=== PATIENT | female | born 1945 | race African-American/Black ===

== ENCOUNTER 2020-01-09 08:30 | Emergency (ER) | payer BC, OTHER ==
[~2020-01-09] VITALS: Ht 160 cm; Wt 113.4 kg
[2020-01-09 10:52] LABS: Basophils # (auto) 0 10 ^3/uL (0-0.2); Eosinophils # (auto) 0 10 ^3/uL (0-0.8); Eosinophils % (auto) 0.1 % (0.0-7.0); Hemoglobin 12.9 g/dL (12.2-16.2); Mean Corpuscular Hgb Conc. 32.6 g/dL (32.0-36.0); Monocytes # (auto) 0.5 10 ^3/uL (0-1.3); Neutrophils # (auto) 4.7 10 ^3/uL (1.6-8.6); White Blood Cell 6.7 10^3/uL (4.4-10.8)
[2020-01-09 10:55] VITALS: BP 140/82
[2020-01-09 10:55] LABS: Basophils % (auto) 0.4 % (0.0-2.0); Hematocrit 39.6 % (36.0-46.0); Lymphocytes # (auto) 1.4 10 ^3/uL (0.4-5.4); Lymphocytes % (auto) 21.4 % (10.0-50.0); Mean Corpuscular Hemoglobin 23.9 pg (28.0-32.0); Mean Corpuscular Volume 73.3 fL (80.0-100.0); Monocytes % (auto) 7.9 % (0.0-12.0); Neutrophils % (auto) 70.2 % (37.0-80.0); Nucleated Red Blood Cells % 0.2 %; Platelet Count (auto) 262 10^3/uL (140-450); Red Cell Distribution Width 15.8 % (11.8-14.3)
[2020-01-09 11:12] LABS: Alanine Aminotransferase 25 U/L (13-56); Albumin 2.9 g/dL (3.4-5.0); Anion Gap 11 (5-15); Aspartate Aminotransferase 26 U/L (15-37); BUN/Creatinine Ratio 14.9; Blood Urea Nitrogen 15 mg/dL (7-18); Calcium 7.8 mg/dL (8.5-10.1); Carbon Dioxide 23 mmol/L (21-32); Chloride 102 mmol/L (98-107); GFR African American 69 mL/min; GFR Non-African American 57 mL/min; Glucose 142 mg/dL (74-106); Sodium 136 mmol/L (136-145)
[2020-01-09 11:17] LABS: Alkaline Phosphatase 122 U/L (45-117); Bilirubin, Total 0.4 mg/dL (0.2-1.0)
[2020-01-09] MEDS ORDERED: POTASSIUM EFFERVESENT TAB 25 MEQ PO ONE (11:45)
[2020-01-13] MEDS ORDERED: RABE20TA19 PO (13:40)
[2020-01-13] MEDS ORDERED: DICL75TA3 PO (13:40)
[2020-01-13] MEDS ORDERED: AMLO-496 PO (13:40)
== END 2020-01-09 12:04 | disposition home or self-care (01) ==
LOC: ER 08:30 → EDBD 08:30 → ER 12:04
DX: J18.9 Pneumonia, unspecified organism (principal); E87.6 Hypokalemia; E44.0 Moderate protein-calorie malnutrition; I10 Essential (primary) hypertension; Z68.41 Body mass index [BMI] 40.0-44.9, adult
CPT/HCPCS: 36415; 71045; 80053; 83880; 84484; 85025; 93005

== ENCOUNTER 2020-01-13 05:08 | Inpatient (IN) | payer BC, MEDICAID ==
[~2020-01-13] VITALS: Ht 170.2 cm; Wt 118.4 kg
[2020-01-13] MEDS ORDERED: ZINC SULFATE 220mg CAP or TAB PO ONE (09:45)
[2020-01-13] MEDS ORDERED: DexAMETHasone SOD PHOS 10MG/1ML VIAL INJ IV ONE (09:45)
[2020-01-13] MEDS ORDERED: DOXYCYCLINE 100MG/250ML 250 ML IV ONE (09:45)
[2020-01-13] MEDS ORDERED: ASCORBIC ACID 500 MG TAB PO ONE (09:45)
[2020-01-13 09:59] LABS: Basophils # (auto) 0 10 ^3/uL (0-0.2); Eosinophils # (auto) 0 10 ^3/uL (0-0.8); Monocytes # (auto) 1.2 10 ^3/uL (0-1.3)
[2020-01-13 10:01] LABS: Hematocrit 39.6 % (36.0-46.0); Lymphocytes # (auto) 1.6 10 ^3/uL (0.4-5.4); Lymphocytes % (auto) 11.1 % (10.0-50.0); Mean Corpuscular Hemoglobin 23.9 pg (28.0-32.0); Mean Corpuscular Hgb Conc. 32.9 g/dL (32.0-36.0); Mean Corpuscular Volume 72.7 fL (80.0-100.0); Monocytes % (auto) 8.7 % (0.0-12.0); Neutrophils # (auto) 11.5 10 ^3/uL (1.6-8.6); Neutrophils % (auto) 80.2 % (37.0-80.0); Platelet Count (auto) 373 10^3/uL (140-450); Red Blood Cells 5.44 10^6/uL (4.0-5.20); Red Cell Distribution Width 15.1 % (11.8-14.3); White Blood Cell 14.4 10^3/uL (4.4-10.8)
[2020-01-13 10:14] LABS: Albumin 2.9 g/dL (3.4-5.0); Potassium 3.3 mmol/L (3.5-5.1)
[2020-01-13 10:19] LABS: BUN/Creatinine Ratio 19.2; Bilirubin, Total 0.5 mg/dL (0.2-1.0); Total Protein 8.1 g/dL (6.4-8.2)
[2020-01-13 11:40] LABS: INR 1.04 (0.9-1.15); Partial Thromboplastin Time 23.6 sec (23.0-31.2)
[2020-01-13] MEDS ORDERED: VANCOMYCIN PER PHARMACY 0 MG IV SCH (13:00)
[2020-01-13] MEDS: SODIUM CHLORIDE 0.9% 1,000 ML IV SCH (13:00)
[2020-01-13] MEDS ORDERED: REMDESIVIR PER PHARMACY 0 ML IV SCH (13:00)
[2020-01-13] MEDS ORDERED: DOCUSATE SOD 100 MG CAP PO PRN (13:00)
[2020-01-13] MEDS ORDERED: ONDANSETRON HCL 4 MG/2 ML VIAL IV PRN (13:00)
[2020-01-13] MEDS ORDERED: ALUM & MAG HYDROX-SIMETH LIQ(MAALOX) 30 ML PO PRN (13:00)
[2020-01-13] MEDS ORDERED: ACETAMINOPHEN 500 MG TAB PO PRN (13:00)
[2020-01-13] MEDS ORDERED: PNEUMOCOCCAL VACC POLYS 25 MCG/0.5 ML VIAL IM ONE (13:00)
[2020-01-13] MEDS ORDERED: INFLUENZA QUAD 2020-2021 0.5 ML SYRG IM ONE (13:00)
[2020-01-13] MEDS ORDERED: MORPHINE SULF INJ 2 MG/ML SYRINGE 1ML IV PRN (13:00)
[2020-01-13] MEDS ORDERED: ENOXAPARIN SOD 100 MG/1 ML SYRINGE SC ONE (13:00)
[2020-01-13] MEDS ORDERED: LORazepam 0.5 MG TAB PO PRN (13:00)
[2020-01-13] MEDS ORDERED: HYDROcodone-ACET 5/325MG TAB PO PRN (13:00)
[2020-01-13] MEDS ORDERED: PIPERACILLIN-TAZOB 3.375GM 100 ML IV ONE (13:00)
[2020-01-13] MEDS ORDERED: POTASSIUM CHL 20MEQ/100ML 100 ML IV ONE (13:15)
[2020-01-13 13:35] LABS: Magnesium 2.5 mg/dL (1.6-2.6)
[2020-01-13] MEDS ORDERED: ALBUAER3 IN (13:40)
[2020-01-13] MEDS ORDERED: FURO40TA4 PO (13:40)
[2020-01-13] MEDS ORDERED: DEXA6TAB PO (13:40)
[2020-01-13] MEDS ORDERED: DOXY100C2 PO (13:40)
[2020-01-13] MEDS ORDERED: AMLO10TA13 PO (13:40)
[2020-01-13] MEDS ORDERED: ACET-6 PO (13:40)
[2020-01-13] MEDS ORDERED: TIOT17SP IN (13:40)
[2020-01-13] MEDS ORDERED: LISI-646 PO (13:40)
[2020-01-13] MEDS ORDERED: INSU75IN2 SC (13:40)
[2020-01-13] MEDS ORDERED: HYDR25TA4 PO (13:40)
[2020-01-13] MEDS ORDERED: ATOR40TA52 PO (13:40)
[2020-01-13] MEDS ORDERED: CLON0.1T PO (13:40)
[2020-01-13] MEDS ORDERED: FLUT250M2 INH (13:40)
[2020-01-13] MEDS ORDERED: RABE20TA5 PO (13:40)
[2020-01-13] MEDS ORDERED: MET25T PO (13:40)
[2020-01-13] MEDS ORDERED: DICL-176 PO (13:40)
[2020-01-13] MEDS ORDERED: LEVO125T7 PO (13:40)
[2020-01-13] MEDS ORDERED: ALBU0.084 NEB (13:40)
[2020-01-13] MEDS ORDERED: BENZ100C97 PO (13:40)
[2020-01-13 13:43] LABS: CRP High Sensitivity 6.14 mg/dL (< 0.3)
[2020-01-13] MEDS ORDERED: DEXTROSE (50%) 50ML SYRG IV PRN (13:45)
[2020-01-13 14:08] LABS: Cholesterol 134 mg/dL (< 200); HDL Cholesterol 31 mg/dL (40-59); LDL Cholesterol 87 mg/dL (< 100); Triglycerides 114 mg/dL (< 150)
[2020-01-13 15:38] LABS: Lactic Acid w/Reflex 2.5 mmol/L (0.4-2.0)
[2020-01-13] MEDS ORDERED: REMDESIVIR 200 MG in NS 210ml LOADING DOSE ADULT IV ONE (16:00)
[2020-01-13 16:54] LABS: Alcohol, Urine < 3.0 mg/dL (0-10); Amphetamine Screen, Urine NEGATIVE (NEGATIVE); Barbiturate Scree,Urine NEGATIVE (NEGATIVE); Benzodiazephine Screen, Urine NEGATIVE (NEGATIVE); Cannabinoid Screen, Urine NEGATIVE (NEGATIVE); Cocaine Screen, Urine NEGATIVE (NEGATIVE); Opiate Scree,Urine NEGATIVE (NEGATIVE); Phencyclidine Screen, Urine NEGATIVE (NEGATIVE)
[2020-01-13] MEDS: ACCU-CHEK COMFORT CURVE STRIP VI SCH ×2 (17:00→22:02)
[2020-01-13] MEDS: InsuLIN REG 1unit/0.01ml Soln (100units/ml) SC SCH ×2 (17:00→22:15)
[2020-01-13] MEDS: VANCOMYCIN 1GM/250ML 250 ML IV SCH (17:11)
[2020-01-13 17:13] LABS: Urine Bacteria NONE SEEN /hpf (None Seen); Urine Blood Negative /uL (Negative); Urine Specific Gravity 1.019 (1.001-1.035); Urine WBC 1 /hpf (0 - 5)
[2020-01-13] MEDS ORDERED: PIPERACILLIN-TAZOB 3.375GM 100 ML IV SCH (18:00)
[2020-01-13] MEDS: FUROSEMIDE 20 MG/2 ML VIAL IV SCH (18:40)
--- NOTE | 2020-01-13 21:26 | NUR ---
Telemetry admit from ER Patient admitted to Telemetry unit after SBAR received and oriented to primary RN, unit, room, bed, and unit policies regarding patient care and visiting hours. Patient now on continuous telemetry monitoring, tele box #5 and telemetry reading on arrival to unit is sinus tachycardia at rate of 104. Patient placed on bedside oxygen at 3l/min NC, weighed by bedscale and encouraged to call if they need something. All questions and concerns addressed, patient verbalized understanding.
[2020-01-13] MEDS: ALBUTEROL SULF HFA 90MCG INH 200DOSE IN PRN (21:28)
[2020-01-13 21:30] VITALS: BP 144/77
[2020-01-13 21:32] LABS: Free T4 (Free Thyroxine) 1.21 ng/dL (0.89-1.76); T3 Total 0.3 ng/mL (0.60-1.81)
[2020-01-13 22:00] VITALS: BP 144/77
[2020-01-13] MEDS: FAMOTIDINE (10MG/ML) 2ML VL IV SCH (22:02)
[2020-01-13] MEDS: ENOXAPARIN SOD 100 MG/1 ML SYRINGE SC SCH (22:02)
[2020-01-13] MEDS: ATORVASTATIN 20 MG TAB PO SCH (22:02)
[2020-01-13] MEDS: PIPERACILLIN-TAZOB 3.375GM 100 ML IV SCH (23:46)
[2020-01-14] MEDS: VANCOMYCIN 1GM/250ML 250 ML IV SCH ×2 (04:33→17:58)
[2020-01-14 05:00] VITALS: BP 141/76
--- NOTE | 2020-01-14 05:26 | NUR ---
IV removal IV to right hand found to be infiltrated. IV DC'd with clean technique, catheter fully intact. Pressure dressing applied to site. Patient tolerated well.
--- NOTE | 2020-01-14 05:27 | NUR ---
IV insertion IV access obtained, via clean technique by inserting a 22 gauge catheter into a vein in the right forearm after 1 attempt. IV secured properly. No trauma to site. Patient tolerated well.
[2020-01-14] MEDS: InsuLIN REG 1unit/0.01ml Soln (100units/ml) SC SCH ×4 (06:14→21:57)
[2020-01-14] MEDS: ACCU-CHEK COMFORT CURVE STRIP VI SCH ×4 (06:16→21:58)
[2020-01-14] MEDS: SODIUM CHLORIDE 0.9% 1,000 ML IV SCH ×2 (06:20→21:46)
[2020-01-14] MEDS: LEVOTHYROXINE SODIUM 50 MCG TAB PO SCH (06:20)
[2020-01-14] MEDS: FUROSEMIDE 20 MG/2 ML VIAL IV SCH ×2 (06:21→17:59)
[2020-01-14] MEDS: PIPERACILLIN-TAZOB 3.375GM 100 ML IV SCH ×4 (06:21→23:57)
[2020-01-14 07:44] LABS: Basophils # (auto) 0 10 ^3/uL (0-0.2); Basophils % (auto) 0.1 % (0.0-2.0); Eosinophils # (auto) 0 10 ^3/uL (0-0.8); Mean Corpuscular Volume 72.9 fL (80.0-100.0); Nucleated Red Blood Cells % 0.1 %; White Blood Cell 14.6 10^3/uL (4.4-10.8)
[2020-01-14 07:47] LABS: Hematocrit 39.1 % (36.0-46.0); Hemoglobin 12.6 g/dL (12.2-16.2); Lymphocytes # (auto) 1.3 10 ^3/uL (0.4-5.4); Mean Corpuscular Hemoglobin 23.5 pg (28.0-32.0); Mean Corpuscular Hgb Conc. 32.2 g/dL (32.0-36.0); Monocytes # (auto) 1.3 10 ^3/uL (0-1.3); Monocytes % (auto) 9.1 % (0.0-12.0); Neutrophils % (auto) 81.8 % (37.0-80.0); Platelet Count (auto) 350 10^3/uL (140-450); Red Blood Cells 5.37 10^6/uL (4.0-5.20); Red Cell Distribution Width 15.5 % (11.8-14.3)
[2020-01-14 08:03] LABS: Albumin 2.4 g/dL (3.4-5.0); BUN/Creatinine Ratio 19.2; Bilirubin, Total 0.5 mg/dL (0.2-1.0); Calcium 8.2 mg/dL (8.5-10.1); Total Protein 7.2 g/dL (6.4-8.2)
[2020-01-14 09:00] VITALS: BP 141/73
[2020-01-14] MEDS: FAMOTIDINE (10MG/ML) 2ML VL IV SCH ×2 (09:23→21:44)
[2020-01-14] MEDS: CHOLECALCIFEROL (VITD3) 2,000 UNIT CAP PO SCH (09:23)
[2020-01-14] MEDS: DexAMETHasone SOD PHOS 10MG/1ML VIAL INJ IV SCH (09:23)
[2020-01-14] MEDS: POTASSIUM CHL 20 Meq TABLET PO SCH (09:24)
[2020-01-14] MEDS: ASCORBIC ACID 1,000 MG TAB PO SCH (09:24)
[2020-01-14] MEDS: ZINC SULFATE 220mg CAP or TAB PO SCH (09:24)
[2020-01-14] MEDS: ASPirin 81 mg TAB PO SCH (09:24)
[2020-01-14] MEDS: LISINOPRIL 5 MG TAB PO SCH (09:25)
[2020-01-14] MEDS: METOPROLOL SUCCINATE XL 50 MG TAB PO SCH (09:25)
[2020-01-14] MEDS: ENOXAPARIN SOD 100 MG/1 ML SYRINGE SC SCH ×2 (09:26→21:45)
[2020-01-14 12:58] VITALS: BP 131/82
[2020-01-14] MEDS: REMDESIVIR 100 MG in SODIUM CHL 0.9% 250 ML IV SCH (16:30)
[2020-01-14 17:00] VITALS: BP 132/89
--- NOTE | 2020-01-14 18:50 | NUR ---
REMDESIVIR V/S 1630-PRE V/S 137/64 HR 94 1645 V/S 144/84 HR 87 1740 POST 132/89 1840 1 HR POST 153/81 96 HR NO S/S OF DISTRESS NOTED.
--- NOTE | 2020-01-14 20:00 | NUR ---
Opening Shift Note Assumed care of patient, awake and alert. No S/S of distress/SOB or pain. Instructed on POC and to call for assist PRN, will continue to monitor for changes Q1hr and PRN. Bed in low position and call light within reach.
[2020-01-14] MEDS: ALBUTEROL SULF HFA 90MCG INH 200DOSE IN PRN (20:36)
[2020-01-14] MEDS: ATORVASTATIN 20 MG TAB PO SCH (21:44)
--- NOTE | 2020-01-14 21:44 | NUR ---
Patient educated on how to use Incentive spirometer patient verbalized understanding
[2020-01-14 23:46] VITALS: BP 140/71
[2020-01-15] MEDS: FUROSEMIDE 20 MG/2 ML VIAL IV SCH ×2 (05:43→17:34)
[2020-01-15] MEDS: PIPERACILLIN-TAZOB 3.375GM 100 ML IV SCH ×3 (05:43→17:34)
[2020-01-15] MEDS: LEVOTHYROXINE SODIUM 50 MCG TAB PO SCH (06:14)
[2020-01-15] MEDS: InsuLIN REG 1unit/0.01ml Soln (100units/ml) SC SCH ×4 (06:16→22:46)
[2020-01-15] MEDS: ACCU-CHEK COMFORT CURVE STRIP VI SCH ×4 (06:16→22:06)
--- NOTE | 2020-01-15 06:27 | NUR ---
LAB AT BEDSIDE OBTAINING BLOOD DRAW
[2020-01-15 06:31] VITALS: BP 141/83
--- NOTE | 2020-01-15 07:05 | NUR ---
REPORT GIVEN TO DAYSHIFT RN PATIENT DENIES SOB DISTRESS OR PAIN
[2020-01-15] MEDS: VANCOMYCIN 1GM/250ML 250 ML IV SCH ×2 (07:16→16:57)
--- NOTE | 2020-01-15 07:21 | NUR ---
NOTIFIED ROSHAN FROM PHARMACY OF DELAY IN GIVING VANCOMYCIN DUE TO AWAITING VANCOMYCIN TROUGH.
[2020-01-15 08:00] VITALS: BP 148/71
[2020-01-15 09:00] VITALS: BP 148/71
[2020-01-15] MEDS: DexAMETHasone SOD PHOS 10MG/1ML VIAL INJ IV SCH (09:53)
[2020-01-15] MEDS: ALBUTEROL SULF HFA 90MCG INH 200DOSE IN PRN (09:54)
[2020-01-15] MEDS: ZINC SULFATE 220mg CAP or TAB PO SCH (09:57)
[2020-01-15] MEDS: ASPirin 81 mg TAB PO SCH (09:57)
[2020-01-15] MEDS: FAMOTIDINE (10MG/ML) 2ML VL IV SCH ×2 (09:57→22:05)
[2020-01-15] MEDS: METOPROLOL SUCCINATE XL 50 MG TAB PO SCH (09:58)
[2020-01-15] MEDS: ASCORBIC ACID 1,000 MG TAB PO SCH (09:58)
[2020-01-15] MEDS: LISINOPRIL 5 MG TAB PO SCH (09:59)
[2020-01-15] MEDS: CHOLECALCIFEROL (VITD3) 2,000 UNIT CAP PO SCH (09:59)
[2020-01-15] MEDS: POTASSIUM CHL 20 Meq TABLET PO SCH (09:59)
[2020-01-15] MEDS: ENOXAPARIN SOD 100 MG/1 ML SYRINGE SC SCH ×2 (10:00→22:05)
[2020-01-15 13:00] VITALS: BP 153/97
[2020-01-15] MEDS: SODIUM CHLORIDE 0.9% 1,000 ML IV SCH (15:36)
[2020-01-15] MEDS: REMDESIVIR 100 MG in SODIUM CHL 0.9% 250 ML IV SCH (15:36)
[2020-01-15 16:42] VITALS: BP 143/85
--- NOTE | 2020-01-15 19:45 | NUR ---
Opening Shift Note Assumed care of patient, awake and alert. No S/S of distress/SOB or pain. Instructed on POC and to call for assist PRN, patient verbalized understanding, call light within reach, will continue to monitor for changes Q1hr and PRN.
[2020-01-15 20:19] VITALS: BP 146/90
[2020-01-15] MEDS: ATORVASTATIN 20 MG TAB PO SCH (22:05)
[2020-01-15] MEDS: INSULIN LANTUS (GLARGINE) 1 /0.01ml (100units/ml) SC SCH (22:45)
[2020-01-16] MEDS: PIPERACILLIN-TAZOB 3.375GM 100 ML IV SCH ×4 (00:21→17:18)
[2020-01-16] MEDS: VANCOMYCIN 1GM/250ML 250 ML IV SCH ×3 (03:18→22:28)
[2020-01-16] MEDS: FUROSEMIDE 20 MG/2 ML VIAL IV SCH ×2 (06:37→17:17)
[2020-01-16] MEDS: ACCU-CHEK COMFORT CURVE STRIP VI SCH ×4 (06:38→22:08)
[2020-01-16] MEDS: LEVOTHYROXINE SODIUM 50 MCG TAB PO SCH (06:38)
[2020-01-16] MEDS: InsuLIN REG 1unit/0.01ml Soln (100units/ml) SC SCH ×4 (06:39→22:26)
[2020-01-16] MEDS: DexAMETHasone SOD PHOS 10MG/1ML VIAL INJ IV SCH (10:14)
[2020-01-16] MEDS: SODIUM CHLORIDE 0.9% 1,000 ML IV SCH (10:14)
[2020-01-16] MEDS: ASPirin 81 mg TAB PO SCH (10:15)
[2020-01-16] MEDS: FAMOTIDINE (10MG/ML) 2ML VL IV SCH ×2 (10:15→22:07)
[2020-01-16] MEDS: ZINC SULFATE 220mg CAP or TAB PO SCH (10:16)
[2020-01-16] MEDS: POTASSIUM CHL 20 Meq TABLET PO SCH (10:17)
[2020-01-16] MEDS: CHOLECALCIFEROL (VITD3) 2,000 UNIT CAP PO SCH (10:21)
[2020-01-16] MEDS: ASCORBIC ACID 1,000 MG TAB PO SCH (10:21)
[2020-01-16] MEDS: LISINOPRIL 5 MG TAB PO SCH (10:30)
[2020-01-16] MEDS: ENOXAPARIN SOD 100 MG/1 ML SYRINGE SC SCH ×2 (10:30→22:07)
[2020-01-16] MEDS: METOPROLOL SUCCINATE XL 50 MG TAB PO SCH (12:05)
--- NOTE | 2020-01-16 14:30 | NUR ---
Nutrition Assessment Notes please see attached link for complete assessment [employer] needs ABW 98 [id number] kcals (17-20 kcal/kgABW), Est Protein needs: 98-107 gms/day (1.0-1.1 gm/kgABW). Will continue to monitor and reassess prn. Addendum: 01/16/20 at [address] Amended: Links added.
--- NOTE | 2020-01-16 14:38 | NUR ---
Assessment Patient is a 74 year old female, patient is unable to speak with SW, QUINTEN called daughter Mary to conduct initial assessment. Per Mary, patient is alert and oriented. Per Mary, patient cognitive abilities are intact. Per Mary, prior to being admitted to [facility], patient can do all ADL's and ambulate independently. Per Mary, patient is a diabetic. Per Mary, patient lives with daughters and grandchildren. Per Mary, Patient will return home post discharge. Per Mary, patient is retire and receives social security benefits. Per Mary, patient daughters and grandchildren are her support system. Per Mary, Patient has Advance Directive on file at her doctor office but not at [facility]. Discharge planning: Patient will return home post discharge, patient will follow up care with her PCP post discharge. Patient has all supplies to resume diabetic care post discharge. There are no other discharge needs to address at the moment.
[2020-01-16 16:20] LABS: Eosinophils # (auto) 0 10 ^3/uL (0-0.8); Hemoglobin 13.7 g/dL (12.2-16.2)
[2020-01-16 16:23] LABS: Basophils # (auto) 0 10 ^3/uL (0-0.2); Basophils % (auto) 0.2 % (0.0-2.0); Lymphocytes % (auto) 5.9 % (10.0-50.0); Mean Corpuscular Hemoglobin 23.8 pg (28.0-32.0); Mean Corpuscular Hgb Conc. 32.7 g/dL (32.0-36.0); Monocytes # (auto) 1.1 10 ^3/uL (0-1.3); Monocytes % (auto) 6.4 % (0.0-12.0); Neutrophils # (auto) 14.3 10 ^3/uL (1.6-8.6); Neutrophils % (auto) 87.5 % (37.0-80.0); Nucleated Red Blood Cells % 0.1 %; Platelet Count (auto) 459 10^3/uL (140-450); Red Blood Cells 5.75 10^6/uL (4.0-5.20); Red Cell Distribution Width 15.3 % (11.8-14.3); White Blood Cell 16.3 10^3/uL (4.4-10.8)
[2020-01-16] MEDS: REMDESIVIR 100 MG in SODIUM CHL 0.9% 250 ML IV SCH (16:45)
--- NOTE | 2020-01-16 19:30 | NUR ---
Opening Shift Note Assumed care of patient, awake and alert. No S/S of distress/SOB or pain. Instructed on POC and to call for assist PRN, will continue to monitor for changes Q1hr and PRN.
[2020-01-16 20:00] VITALS: BP 138/76
[2020-01-16 22:00] VITALS: BP 138/76
[2020-01-16] MEDS: ATORVASTATIN 20 MG TAB PO SCH (22:07)
[2020-01-16] MEDS: INSULIN LANTUS (GLARGINE) 1 /0.01ml (100units/ml) SC SCH (22:27)
[2020-01-17] VITALS (9 sets, daily range): BP systolic 111–138; BP diastolic 68–85
[2020-01-17] MEDS: PIPERACILLIN-TAZOB 3.375GM 100 ML IV SCH ×4 (00:25→17:06)
[2020-01-17] MEDS: SODIUM CHLORIDE 0.9% 1,000 ML IV SCH (00:25)
[2020-01-17] MEDS: LEVOTHYROXINE SODIUM 50 MCG TAB PO SCH (06:50)
[2020-01-17] MEDS: FUROSEMIDE 20 MG/2 ML VIAL IV SCH ×2 (06:50→17:05)
[2020-01-17] MEDS: ACCU-CHEK COMFORT CURVE STRIP VI SCH ×4 (06:51→22:31)
[2020-01-17] MEDS: InsuLIN REG 1unit/0.01ml Soln (100units/ml) SC SCH ×4 (06:52→22:33)
[2020-01-17] MEDS: VANCOMYCIN 1GM/250ML 250 ML IV SCH (08:55)
[2020-01-17] MEDS: ASPirin 81 mg TAB PO SCH (09:10)
[2020-01-17] MEDS: FAMOTIDINE (10MG/ML) 2ML VL IV SCH ×2 (09:10→22:31)
[2020-01-17] MEDS: DexAMETHasone SOD PHOS 10MG/1ML VIAL INJ IV SCH (09:10)
[2020-01-17] MEDS: POTASSIUM CHL 20 Meq TABLET PO SCH (09:11)
[2020-01-17] MEDS: ZINC SULFATE 220mg CAP or TAB PO SCH (09:11)
[2020-01-17] MEDS: ASCORBIC ACID 1,000 MG TAB PO SCH (09:12)
[2020-01-17] MEDS: METOPROLOL SUCCINATE XL 50 MG TAB PO SCH (09:12)
[2020-01-17] MEDS: LISINOPRIL 5 MG TAB PO SCH (09:13)
[2020-01-17] MEDS: CHOLECALCIFEROL (VITD3) 2,000 UNIT CAP PO SCH (09:13)
[2020-01-17] MEDS: ENOXAPARIN SOD 100 MG/1 ML SYRINGE SC SCH ×2 (09:14→22:31)
[2020-01-17] MEDS: INSULIN LANTUS (GLARGINE) 1 /0.01ml (100units/ml) SC SCH ×2 (11:35→22:33)
[2020-01-17] MEDS: ALBUTEROL SULF HFA 90MCG INH 200DOSE IN PRN ×2 (12:45→21:41)
[2020-01-17] MEDS: REMDESIVIR 100 MG in SODIUM CHL 0.9% 250 ML IV SCH (15:42)
[2020-01-17 16:12] LABS: Basophils # (auto) 0 10 ^3/uL (0-0.2); Eosinophils # (auto) 0 10 ^3/uL (0-0.8); Lymphocytes % (auto) 3.5 % (10.0-50.0); Monocytes # (auto) 1.1 10 ^3/uL (0-1.3); Monocytes % (auto) 5.7 % (0.0-12.0); Neutrophils # (auto) 16.7 10 ^3/uL (1.6-8.6)
[2020-01-17 16:14] LABS: Basophils % (auto) 0.3 % (0.0-2.0); Hematocrit 45.4 % (36.0-46.0); Hemoglobin 14.2 g/dL (12.2-16.2); Lymphocytes # (auto) 0.7 10 ^3/uL (0.4-5.4); Mean Corpuscular Hemoglobin 23.2 pg (28.0-32.0); Mean Corpuscular Hgb Conc. 31.2 g/dL (32.0-36.0); Mean Corpuscular Volume 74.4 fL (80.0-100.0); Neutrophils % (auto) 90.5 % (37.0-80.0); Platelet Count (auto) 528 10^3/uL (140-450); Red Blood Cells 6.11 10^6/uL (4.0-5.20); Red Cell Distribution Width 15.2 % (11.8-14.3); White Blood Cell 18.5 10^3/uL (4.4-10.8)
[2020-01-17 16:35] LABS: Albumin 2.3 g/dL (3.4-5.0); Calcium 8.4 mg/dL (8.5-10.1); Potassium 4.8 mmol/L (3.5-5.1)
[2020-01-17 16:39] LABS: BUN/Creatinine Ratio 25.4; Bilirubin, Total 0.8 mg/dL (0.2-1.0); Total Protein 7.5 g/dL (6.4-8.2)
--- NOTE | 2020-01-17 17:28 | NUR ---
DR MASSIEL LEON FOR CRITICAL VALUE OF BLOOD GLUCOSE 411. DR RANKIN INFORMED ME HE HAD CHANGED HER LANTUS ORDER TO BID AND TO MAINTAIN THE MODERATE SCALE THAT SHE IS PRESENTLY ON
[2020-01-17] MEDS: ATORVASTATIN 20 MG TAB PO SCH (22:31)
[2020-01-18] VITALS (7 sets, daily range): BP systolic 114–134; BP diastolic 55–87
[2020-01-18] MEDS: PIPERACILLIN-TAZOB 3.375GM 100 ML IV SCH ×5 (00:05→23:43)
[2020-01-18] MEDS: FUROSEMIDE 20 MG/2 ML VIAL IV SCH ×2 (06:06→17:40)
[2020-01-18] MEDS: LEVOTHYROXINE SODIUM 50 MCG TAB PO SCH (06:37)
[2020-01-18] MEDS: ACCU-CHEK COMFORT CURVE STRIP VI SCH ×4 (06:49→22:07)
[2020-01-18] MEDS: InsuLIN REG 1unit/0.01ml Soln (100units/ml) SC SCH ×4 (06:49→22:17)
[2020-01-18] MEDS: FAMOTIDINE (10MG/ML) 2ML VL IV SCH ×2 (09:28→22:06)
[2020-01-18] MEDS: DexAMETHasone SOD PHOS 10MG/1ML VIAL INJ IV SCH (09:28)
[2020-01-18] MEDS: ASPirin 81 mg TAB PO SCH (09:29)
[2020-01-18] MEDS: POTASSIUM CHL 20 Meq TABLET PO SCH (09:29)
[2020-01-18] MEDS: METOPROLOL SUCCINATE XL 50 MG TAB PO SCH (09:32)
[2020-01-18] MEDS: CHOLECALCIFEROL (VITD3) 2,000 UNIT CAP PO SCH (09:33)
[2020-01-18] MEDS: ASCORBIC ACID 1,000 MG TAB PO SCH (09:33)
[2020-01-18] MEDS: LISINOPRIL 5 MG TAB PO SCH (09:34)
[2020-01-18] MEDS: INSULIN LANTUS (GLARGINE) 1 /0.01ml (100units/ml) SC SCH ×2 (09:35→22:07)
[2020-01-18] MEDS: ENOXAPARIN SOD 100 MG/1 ML SYRINGE SC SCH ×2 (09:36→22:06)
[2020-01-18] MEDS: ZINC SULFATE 220mg CAP or TAB PO SCH (09:42)
[2020-01-18] MEDS: ATORVASTATIN 20 MG TAB PO SCH (22:06)
--- NOTE | 2020-01-19 00:20 | NUR ---
Dr. Bernard returned page concerning patient's high blood sugar. no new orders obtained. Instructions were to continue to follow the insulin dosing protocols that are currently established.
[2020-01-19 05:00] VITALS: BP 125/75
[2020-01-19] MEDS: PIPERACILLIN-TAZOB 3.375GM 100 ML IV SCH ×3 (05:38→18:01)
[2020-01-19] MEDS: FUROSEMIDE 20 MG/2 ML VIAL IV SCH ×2 (05:38→16:57)
[2020-01-19] MEDS: InsuLIN REG 1unit/0.01ml Soln (100units/ml) SC SCH ×4 (06:34→22:21)
[2020-01-19] MEDS: LEVOTHYROXINE SODIUM 50 MCG TAB PO SCH (06:34)
[2020-01-19] MEDS: ACCU-CHEK COMFORT CURVE STRIP VI SCH ×4 (06:34→22:21)
[2020-01-19 08:00] VITALS: BP 117/82
[2020-01-19] MEDS: DexAMETHasone SOD PHOS 10MG/1ML VIAL INJ IV SCH (09:27)
[2020-01-19] MEDS: ASPirin 81 mg TAB PO SCH (09:28)
[2020-01-19] MEDS: ZINC SULFATE 220mg CAP or TAB PO SCH (09:28)
[2020-01-19] MEDS: FAMOTIDINE (10MG/ML) 2ML VL IV SCH ×2 (09:28→21:57)
[2020-01-19] MEDS: POTASSIUM CHL 20 Meq TABLET PO SCH (09:29)
[2020-01-19] MEDS: METOPROLOL SUCCINATE XL 50 MG TAB PO SCH (09:31)
[2020-01-19] MEDS: ASCORBIC ACID 1,000 MG TAB PO SCH (09:32)
[2020-01-19] MEDS: CHOLECALCIFEROL (VITD3) 2,000 UNIT CAP PO SCH (09:33)
[2020-01-19] MEDS: LISINOPRIL 5 MG TAB PO SCH (09:34)
[2020-01-19] MEDS: INSULIN LANTUS (GLARGINE) 1 /0.01ml (100units/ml) SC SCH ×2 (09:39→22:21)
[2020-01-19] MEDS: ENOXAPARIN SOD 100 MG/1 ML SYRINGE SC SCH ×2 (09:39→21:57)
[2020-01-19 12:14] LABS: Potassium 4.3 mmol/L (3.5-5.1)
[2020-01-19 12:20] LABS: BUN/Creatinine Ratio 32.5; Calcium 8.9 mg/dL (8.5-10.1)
--- NOTE | 2020-01-19 14:00 | NUR ---
jackman catheter discontinued
--- NOTE | 2020-01-19 19:50 | NUR ---
Opening Shift Note Assumed care of patient, awake and alert, oriented x 4, follows direction. On oxygen at 5L via NC with even and unlabored respirations. No S/S of distress/SOB or pain. Patient is able to turn independently in bed. Bed in lowest locked position with side rails up x 2 and call light within reach, bed alarm on. Instructed on POC and to call for assist PRN, will continue to monitor for changes Q1hr and PRN.
[2020-01-19 21:41] VITALS: BP 123/65
[2020-01-19] MEDS: ATORVASTATIN 20 MG TAB PO SCH (21:57)
--- NOTE | 2020-01-19 23:00 | NUR ---
Paged Dr. Andrews RE: blood sugar 470 blood sugar 470, protocol initiated per orders. reassessed blood sugar 439. 5150 Received call back Informed Dr. Andrews of blood sugar, orders received to change insulin to aggressive scale with Accuchecks q4hrs. read back and verified orders, will carry out orders and continue care.
[2020-01-19] MEDS ORDERED: DEXTROSE (50%) 50ML SYRG IV PRN (23:45)
[2020-01-20] MEDS: ACCU-CHEK COMFORT CURVE STRIP VI SCH ×6 (00:07→20:52)
[2020-01-20] MEDS: PIPERACILLIN-TAZOB 3.375GM 100 ML IV SCH ×4 (00:12→17:28)
[2020-01-20] MEDS: InsuLIN REG 1unit/0.01ml Soln (100units/ml) SC SCH ×6 (00:12→21:14)
[2020-01-20 05:00] VITALS: BP 121/75
[2020-01-20] MEDS: FUROSEMIDE 20 MG/2 ML VIAL IV SCH ×2 (06:07→17:37)
[2020-01-20] MEDS: LEVOTHYROXINE SODIUM 50 MCG TAB PO SCH (06:08)
--- NOTE | 2020-01-20 07:05 | NUR ---
Closing Note patient resting in bed with oxygen on at 4L via NC with even and unlabored respirations, no s/s of distress or SOB. Bed in lowest locked position with side rails up x 2 and call light within reach. endorsed care to day shift RN.
[2020-01-20 08:00] VITALS: BP 120/71
[2020-01-20 08:54] LABS: Eosinophils # (auto) 0 10 ^3/uL (0-0.8); Hemoglobin 14.5 g/dL (12.2-16.2); Mean Corpuscular Hgb Conc. 32.2 g/dL (32.0-36.0); Nucleated Red Blood Cells % 0.2 %
[2020-01-20 08:57] LABS: Basophils # (auto) 0.2 10 ^3/uL (0-0.2); Basophils % (auto) 0.9 % (0.0-2.0); Lymphocytes # (auto) 2.8 10 ^3/uL (0.4-5.4); Lymphocytes % (auto) 13.7 % (10.0-50.0); Mean Corpuscular Hemoglobin 23.6 pg (28.0-32.0); Mean Corpuscular Volume 73.3 fL (80.0-100.0); Monocytes # (auto) 2.2 10 ^3/uL (0-1.3); Monocytes % (auto) 10.8 % (0.0-12.0); Neutrophils # (auto) 15.4 10 ^3/uL (1.6-8.6); Neutrophils % (auto) 74.6 % (37.0-80.0); Platelet Count (auto) 598 10^3/uL (140-450); Red Blood Cells 6.14 10^6/uL (4.0-5.20); Red Cell Distribution Width 15.1 % (11.8-14.3); White Blood Cell 20.6 10^3/uL (4.4-10.8)
[2020-01-20 09:00] VITALS: BP 120/71
[2020-01-20] MEDS: ASPirin 81 mg TAB PO SCH (09:23)
[2020-01-20] MEDS: DexAMETHasone SOD PHOS 10MG/1ML VIAL INJ IV SCH (09:23)
[2020-01-20] MEDS: FAMOTIDINE (10MG/ML) 2ML VL IV SCH ×2 (09:23→20:55)
[2020-01-20] MEDS: ZINC SULFATE 220mg CAP or TAB PO SCH (09:24)
[2020-01-20] MEDS: POTASSIUM CHL 20 Meq TABLET PO SCH (09:24)
[2020-01-20] MEDS: METOPROLOL SUCCINATE XL 50 MG TAB PO SCH (09:26)
[2020-01-20] MEDS: ASCORBIC ACID 1,000 MG TAB PO SCH (09:27)
[2020-01-20 09:28] LABS: Potassium 3.8 mmol/L (3.5-5.1)
[2020-01-20] MEDS: CHOLECALCIFEROL (VITD3) 2,000 UNIT CAP PO SCH (09:28)
[2020-01-20] MEDS: LISINOPRIL 5 MG TAB PO SCH (09:29)
[2020-01-20] MEDS: INSULIN LANTUS (GLARGINE) 1 /0.01ml (100units/ml) SC SCH ×2 (09:31→21:14)
[2020-01-20] MEDS: ENOXAPARIN SOD 100 MG/1 ML SYRINGE SC SCH ×2 (09:33→20:56)
[2020-01-20 09:35] LABS: BUN/Creatinine Ratio 33.1; CRP High Sensitivity 0.77 mg/dL (< 0.3); Calcium 8.7 mg/dL (8.5-10.1); Magnesium 2.7 mg/dL (1.6-2.6)
--- NOTE | 2020-01-20 10:52 | NUR ---
Consultation Patient has a order for discharge planning, patient stated that she lives with her and daughter. Patient stated that prior to being admitted to [facility], she could ambulate and do all ADL's independently. Patient stated that she wants to return home post discharge. Patient is receptive to home health physical therapy or SNF for rehabilitation. Patient would benefit from Physical therapy evaluation for discharge planning.
[2020-01-20] MEDS: ALBUTEROL SULF HFA 90MCG INH 200DOSE IN PRN ×2 (11:31→21:14)
[2020-01-20 13:00] VITALS: BP 133/55
--- NOTE | 2020-01-20 15:20 | NUR ---
DR RANKIN AT BEDSIDE
[2020-01-20 17:00] VITALS: BP 120/59
--- NOTE | 2020-01-20 19:35 | NUR ---
Opening Shift Note Assumed care of patient, awake and alert, oriented x 4, follows direction. On oxygen at 4L via NC with even and unlabored respirations. No S/S of distress/SOB or pain. Patient is able to turn independently in bed. Assisted patient off bedpan, cleaned patient and changed linens. educated patient on use of IS, attempted to have patient return demonstration, patient stated she is too tired right now, will attempt again at later time. Encourage patient to use IS while awake, patient verbalized understanding. Bed in lowest locked position with side rails up x 2 and call light within reach, bed alarm on. Instructed on POC and to call for assist PRN, will continue to monitor for changes Q1hr and PRN.
[2020-01-20] MEDS: ATORVASTATIN 20 MG TAB PO SCH (20:55)
--- NOTE | 2020-01-20 21:15 | NUR ---
Incentive Spirometer patient was able to properly return demonstration of IS, inspire volume 1000mL. Patient on 4L via NC, tolerated well. Encouraged patient to continue to use, patient verbalized understanding.
[2020-01-20 22:00] VITALS: BP 125/51
[2020-01-21] MEDS: ACCU-CHEK COMFORT CURVE STRIP VI SCH ×6 (00:56→21:20)
[2020-01-21] MEDS: PIPERACILLIN-TAZOB 3.375GM 100 ML IV SCH ×4 (01:02→18:27)
[2020-01-21] MEDS: InsuLIN REG 1unit/0.01ml Soln (100units/ml) SC SCH ×6 (01:06→21:36)
[2020-01-21 05:00] VITALS: BP 128/68
[2020-01-21] MEDS: FUROSEMIDE 20 MG/2 ML VIAL IV SCH ×2 (05:52→18:00)
[2020-01-21] MEDS: LEVOTHYROXINE SODIUM 50 MCG TAB PO SCH (06:41)
[2020-01-21 07:05] LABS: BUN/Creatinine Ratio 38.5; Calcium 8.7 mg/dL (8.5-10.1); Magnesium 2.4 mg/dL (1.6-2.6)
[2020-01-21 07:08] LABS: Basophils # (auto) 0 10 ^3/uL (0-0.2); Eosinophils # (auto) 0 10 ^3/uL (0-0.8); Hemoglobin 13.6 g/dL (12.2-16.2); Nucleated Red Blood Cells % 0.1 %
[2020-01-21 07:12] LABS: Basophils % (auto) 0.2 % (0.0-2.0); Hematocrit 42.6 % (36.0-46.0); Lymphocytes % (auto) 12.6 % (10.0-50.0); Mean Corpuscular Hemoglobin 23.3 pg (28.0-32.0); Monocytes # (auto) 2.4 10 ^3/uL (0-1.3); Monocytes % (auto) 10.1 % (0.0-12.0); Neutrophils # (auto) 18.4 10 ^3/uL (1.6-8.6); Neutrophils % (auto) 77.1 % (37.0-80.0); Platelet Count (auto) 511 10^3/uL (140-450); Red Blood Cells 5.84 10^6/uL (4.0-5.20); Red Cell Distribution Width 15.2 % (11.8-14.3); White Blood Cell 23.8 10^3/uL (4.4-10.8)
[2020-01-21] MEDS: ALBUTEROL SULF HFA 90MCG INH 200DOSE IN PRN ×2 (07:27→21:55)
--- NOTE | 2020-01-21 07:27 | NUR ---
Respiratory note: RECEIVED PT ON 4L NC. NO RESPIRATORY DISTRESS NOTED. WILL CONT. TO MONITOR.
[2020-01-21] MEDS: DexAMETHasone SOD PHOS 10MG/1ML VIAL INJ IV SCH (11:54)
[2020-01-21] MEDS: FAMOTIDINE (10MG/ML) 2ML VL IV SCH ×2 (11:54→21:37)
[2020-01-21] MEDS: ZINC SULFATE 220mg CAP or TAB PO SCH (11:55)
[2020-01-21] MEDS: POTASSIUM CHL 20 Meq TABLET PO SCH (11:55)
[2020-01-21] MEDS: ASPirin 81 mg TAB PO SCH (11:55)
[2020-01-21] MEDS: METOPROLOL SUCCINATE XL 50 MG TAB PO SCH (11:56)
[2020-01-21] MEDS: ASCORBIC ACID 1,000 MG TAB PO SCH (11:57)
[2020-01-21] MEDS: CHOLECALCIFEROL (VITD3) 2,000 UNIT CAP PO SCH (11:57)
[2020-01-21] MEDS: LISINOPRIL 5 MG TAB PO SCH (11:58)
[2020-01-21] MEDS: ENOXAPARIN SOD 100 MG/1 ML SYRINGE SC SCH ×2 (11:59→21:37)
[2020-01-21] MEDS: INSULIN LANTUS (GLARGINE) 1 /0.01ml (100units/ml) SC SCH ×2 (12:00→21:37)
[2020-01-21 13:00] VITALS: BP 112/58
--- NOTE | 2020-01-21 15:53 | NUR ---
Nutrition Followup Notes Pt wt is 118.3 kg Pt is positive for COVID in isolation. Pt is with a Regualr diet, appetite is fair aeb ave 58% x 3 meals per RN doc. Est Energy needs ABW 98 [id number] kcals (17-20 kcal/kgABW), Est Protein needs: 98-107 gms/day (1.0-1.1 gm/kgABW). Will continue to monitor and reassess prn. LABS: BUN 45 h, CREAT 1.17 H, GLUC 191 H, ALB 2.3 L GI: Pt had 1 BM on 01/20 per RN doc BS: 18 mod risk. Refer to wound assessment report for further details PES: 1) Altered nutrition related lab values r.t current/chronic medical condition aeb elev a1c hyperglycemia 2) Decreased nutrient needs r/t adiposity aeb pt`s high BMI of 44.5 kg Malnutrition related to morbid BMI> or equal to 40 Malnutrition related to morbid obesity Yes Comments Will continue to monitor PO status, skin status, pertinent labs and weight trends. Will f/u in 3-5 days 1) refer to CDE on DC 2) continue current plan fo care
--- NOTE | 2020-01-21 16:08 | NUR ---
QUINTEN spoke with Dawna from [facility] ([phone]), Per Dawna, patient is accepted for Home Health services, Home safety eval and home PT. QUINTEN spoke with Zaira from [employer] [facility] portable oxygen ETA between 5 - 8 pm today. QUINTEN will notify RN of delivery status.
--- NOTE | 2020-01-21 16:28 | NUR ---
[facility] phone number is [phone].
--- NOTE | 2020-01-21 19:40 | NUR ---
Opening Shift Note Assumed care of patient, awake and alert, oriented x 4, follows direction. On oxygen at 4L via NC with even and unlabored respirations. No S/S of distress/SOB or pain. Patient is able to turn independently in bed. Bed in lowest locked position with side rails up x 2 and call light within reach, bed alarm on. Instructed on POC and to call for assist PRN, will continue to monitor for changes Q1hr and PRN.
[2020-01-21] MEDS: ATORVASTATIN 20 MG TAB PO SCH (21:37)
--- NOTE | 2020-01-22 | NUR ---
Rounds patient sleeping on left side, with oxygen on at 8L via Oxymizer, even and unlabored respirations. continuous pulse ox on o2 sat 94%. will continue to monitor. Addendum: 01/22/20 at 0245 by Margie Araujo RN RN Amended: Links added.
[2020-01-22] MEDS: PIPERACILLIN-TAZOB 3.375GM 100 ML IV SCH ×2 (00:31→05:39)
[2020-01-22] MEDS: ACCU-CHEK COMFORT CURVE STRIP VI SCH ×5 (00:31→16:00)
[2020-01-22] MEDS: InsuLIN REG 1unit/0.01ml Soln (100units/ml) SC SCH ×5 (00:37→16:00)
[2020-01-22 05:30] VITALS: BP 111/72
[2020-01-22] MEDS: FUROSEMIDE 20 MG/2 ML VIAL IV SCH (05:40)
[2020-01-22 06:01] LABS: Eosinophils # (auto) 0 10 ^3/uL (0-0.8); Hemoglobin 12.6 g/dL (12.2-16.2); Monocytes % (auto) 9.7 % (0.0-12.0)
[2020-01-22 06:04] LABS: Basophils # (auto) 0.1 10 ^3/uL (0-0.2); Basophils % (auto) 0.4 % (0.0-2.0); Hematocrit 40.5 % (36.0-46.0); Lymphocytes # (auto) 3.2 10 ^3/uL (0.4-5.4); Lymphocytes % (auto) 12.5 % (10.0-50.0); Mean Corpuscular Hemoglobin 22.7 pg (28.0-32.0); Mean Corpuscular Hgb Conc. 31.2 g/dL (32.0-36.0); Mean Corpuscular Volume 72.9 fL (80.0-100.0); Monocytes # (auto) 2.4 10 ^3/uL (0-1.3); Neutrophils # (auto) 19.6 10 ^3/uL (1.6-8.6); Neutrophils % (auto) 77.4 % (37.0-80.0); Nucleated Red Blood Cells % 0.1 %; Platelet Count (auto) 449 10^3/uL (140-450); Red Blood Cells 5.55 10^6/uL (4.0-5.20); Red Cell Distribution Width 15.3 % (11.8-14.3); White Blood Cell 25.3 10^3/uL (4.4-10.8)
[2020-01-22 06:15] LABS: Potassium 4.7 mmol/L (3.5-5.1)
[2020-01-22 06:21] LABS: BUN/Creatinine Ratio 39.6; Calcium 8.5 mg/dL (8.5-10.1); Magnesium 2.8 mg/dL (1.6-2.6)
[2020-01-22] MEDS: LEVOTHYROXINE SODIUM 50 MCG TAB PO SCH (06:23)
--- NOTE | 2020-01-22 06:50 | NUR ---
Closing Note patient resting in bed with oxygen on at 2L via NC with even and unlabored respirations, o2 sat 95%, no s/s of distress or SOB. Bed in lowest locked position with side rails up x 2 and call light within reach.
--- NOTE | 2020-01-22 07:17 | NUR ---
Endorsed care to day shift ESTHER Nina
[2020-01-22] MEDS: ALBUTEROL SULF HFA 90MCG INH 200DOSE IN PRN (07:40)
[2020-01-22] MEDS: METOPROLOL SUCCINATE XL 50 MG TAB PO SCH (10:00)
[2020-01-22] MEDS: DexAMETHasone SOD PHOS 10MG/1ML VIAL INJ IV SCH (10:57)
[2020-01-22] MEDS: ZINC SULFATE 220mg CAP or TAB PO SCH (10:58)
[2020-01-22] MEDS: FAMOTIDINE (10MG/ML) 2ML VL IV SCH (10:58)
[2020-01-22] MEDS: POTASSIUM CHL 20 Meq TABLET PO SCH (10:58)
[2020-01-22] MEDS: ASPirin 81 mg TAB PO SCH (10:58)
[2020-01-22] MEDS: CHOLECALCIFEROL (VITD3) 2,000 UNIT CAP PO SCH (11:12)
[2020-01-22] MEDS: LISINOPRIL 5 MG TAB PO SCH (11:12)
[2020-01-22] MEDS: ASCORBIC ACID 1,000 MG TAB PO SCH (11:12)
[2020-01-22] MEDS: INSULIN LANTUS (GLARGINE) 1 /0.01ml (100units/ml) SC SCH (11:14)
[2020-01-22] MEDS: ENOXAPARIN SOD 100 MG/1 ML SYRINGE SC SCH (11:14)
[2020-01-22 11:57] VITALS: BP 114/73
--- NOTE | 2020-01-22 13:51 | NUR ---
QUINTEN spoke with Zaira from [facility], she stated that ETA oxygen should arrive at 2 pm today. QUINTEN notify Kelle SANTANA of status of oxygen delivery.
--- NOTE | 2020-01-22 18:04 | NUR ---
Discharge instructions given as ordered. Encourage to follow up with PMD as instructed. All questions and concerns addressed. Patient verbalized understanding. Medication reconciliation form completed and copy given to patient. IV removed with catheter intact, pressure dressing applied. Telemetry unit returned to ICU. Patient taken to vehicle via wheelchair with all personal belongings, accompanied by staff. No distress noted at time of departure.
== END 2020-01-22 18:04 | disposition home health service (06) | DRG 177 ==
LOC: EDBD 05:08 → ER 05:08 → TELE 05:09 → TELE-EAST 21:26
PROVIDERS: ADMIT Hospitalist; ATTEND Internal Medicine
PROC: XW033E5 Introduction of Remdesivir Anti-infective into Peripheral Vein, Percutaneous Approach, New Technology Group 5 (ICD-10-PCS; principal; 2020-01-13)
DX: U07.1 COVID-19 (principal); J96.01 Acute respiratory failure with hypoxia; J12.89 Other viral pneumonia; E43 Unspecified severe protein-calorie malnutrition; J98.11 Atelectasis; N17.9 Acute kidney failure, unspecified; Z68.41 Body mass index [BMI] 40.0-44.9, adult; I13.0 Hypertensive heart and chronic kidney disease with heart failure and stage 1 through stage 4 chronic kidney disease, or unspecified chronic kidney disease; J44.0 Chronic obstructive pulmonary disease with (acute) lower respiratory infection; E66.01 Morbid (severe) obesity due to excess calories; I50.9 Heart failure, unspecified; N18.9 Chronic kidney disease, unspecified; E03.9 Hypothyroidism, unspecified; E87.6 Hypokalemia; E11.22 Type 2 diabetes mellitus with diabetic chronic kidney disease; E11.65 Type 2 diabetes mellitus with hyperglycemia; E78.5 Hyperlipidemia, unspecified; Z79.4 Long term (current) use of insulin; Z79.51 Long term (current) use of inhaled steroids; Z79.899 Other long term (current) drug therapy; Z23 Encounter for immunization
CPT/HCPCS: 36415; 71045; 80048; 80053; 80061; 80202; 80307; 81001; 82565; 82728; 82962; 83036; 83605; 83615; 83735; 83880; 84439; 84443; 84480; 84484; 85025; 85379; 85610; 85730; 86141; 87086; 87426; 93005; 94640; 97116; 97530; 99291; G0378; J1100; J1815; J2543; J3480; J3490

== ENCOUNTER → 2022-08-14 | Outpatient (CLI) | payer OTHER, MEDICAID ==
[~2022-08-14] MED LIST: ACET-6 PO; ALBU0.084 NEB; ALBUAER3 IN; AMLO1TAB23 PO; ATOR40TA52 PO; BENZ100C97 PO; CLON0.1T PO; DICL75TA3 PO; FLUT250M2 INH; FURO40TA4 PO; HYDR25TA4 PO; INSU75IN2 SC; LEVO125T7 PO; LISI20TA56 PO; MET25T PO; RABE20TA19 PO; TIOT17SP IN
[2022-08-14 11:03] LABS: Basophils # (auto) 0.1 10 ^3/uL (0-0.2); Eosinophils # (auto) 0.7 10 ^3/uL (0-0.8); Hemoglobin 11.5 g/dL (12.2-16.2); Lymphocytes # (auto) 2.8 10 ^3/uL (0.4-5.4); Monocytes # (auto) 0.8 10 ^3/uL (0-1.3)
[2022-08-14 11:05] LABS: Basophils % (auto) 0.8 % (0.0-2.0); Eosinophils % (auto) 6.6 % (0.0-7.0); Hematocrit 35.4 % (36.0-46.0); Lymphocytes % (auto) 26.2 % (10.0-50.0); Mean Corpuscular Hemoglobin 26.1 pg (28.0-32.0); Mean Corpuscular Hgb Conc. 32.5 g/dL (32.0-36.0); Mean Corpuscular Volume 80.5 fL (80.0-100.0); Monocytes % (auto) 7.6 % (0.0-12.0); Neutrophils # (auto) 6.2 10 ^3/uL (1.6-8.6); Neutrophils % (auto) 58.8 % (37.0-80.0); Nucleated Red Blood Cells % 0.1 %; Red Cell Distribution Width 17.4 % (11.8-14.3); White Blood Cell 10.6 10^3/uL (4.4-10.8)
[2022-08-14 11:55] LABS: Potassium 3.8 mmol/L (3.5-5.1)
[2022-08-14 12:06] LABS: Folate (Folic Acid) 15.12 ng/mL (5.38-24)
[2022-08-14 12:08] LABS: BUN/Creatinine Ratio 21.9 (10.0-20.0); Bilirubin, Total 0.3 mg/dL (0.2-1.0); Calcium 8.3 mg/dL (8.5-10.1); Total Protein 7.4 g/dL (6.4-8.2)
[2022-08-14 12:18] LABS: Urine Bacteria NONE SEEN /hpf (None Seen); Urine Blood Negative /uL (Negative); Urine Hyaline Cast FEW /lpf (0 - 2); Urine Specific Gravity 1.021 (1.001-1.035); Urine WBC 262 /hpf (0 - 5)
== END | disposition home or self-care (01) ==
LOC: LAB 10:45
PROVIDERS: ATTEND Internal Medicine
DX: E78.41 Elevated Lipoprotein(a) (principal); R68.89 Other general symptoms and signs; R73.09 Other abnormal glucose; E61.2 Magnesium deficiency; R94.6 Abnormal results of thyroid function studies; E79.0 Hyperuricemia without signs of inflammatory arthritis and tophaceous disease; E55.9 Vitamin D deficiency, unspecified; D51.9 Vitamin B12 deficiency anemia, unspecified; R82.90 Unspecified abnormal findings in urine; R82.991 Hypocitraturia
CPT/HCPCS: 36415; 80053; 80061; 81001; 82306; 82607; 82746; 83036; 83735; 84443; 84550; 85025; 87086

== ENCOUNTER → 2022-08-17 | Outpatient (CLI) | payer OTHER | END | disposition home or self-care (01) | LOC: RT 10:36 | PROVIDERS: ATTEND Internal Medicine Pulmonary Disease | DX: J44.9 Chronic obstructive pulmonary disease, unspecified (principal) | CPT/HCPCS: 94060; 94727; 94729 ==

== ENCOUNTER → 2022-10-02 | Outpatient (CLI) | payer OTHER, MEDICAID ==
[~2022-10-02] MED LIST changes: +BUPIVACAINE HCL 0.25% P/F 10 ML VIAL ONE; +IOHEXOL 300 MG/ML 100ML BOTTLE IJ ONE; +LIDOCAINE 2%HCL (LOCAL ANESTH.) INJ 10ml MDV ONE; +methylPREDNISolone ACETATE 80 MG/ML VL ONE
== END | disposition home or self-care (01) ==
LOC: XYW 10:16
PROVIDERS: ATTEND Orthopaedic Surgery Adult Reconstructive Orthopaedic Surgery
DX: M16.12 Unilateral primary osteoarthritis, left hip (principal)
CPT/HCPCS: 20610; 73502; 76000; J1040; J2001; J3490; Q9967

== ENCOUNTER → 2022-11-20 | Outpatient (CLI) | payer OTHER ==
[~2022-11-20] MED LIST changes: -BUPIVACAINE HCL 0.25% P/F 10 ML VIAL ONE; -IOHEXOL 300 MG/ML 100ML BOTTLE IJ ONE; -LIDOCAINE 2%HCL (LOCAL ANESTH.) INJ 10ml MDV ONE; -methylPREDNISolone ACETATE 80 MG/ML VL ONE
[2022-11-20 13:08] LABS: Basophils # (auto) 0.1 10 ^3/uL (0-0.2); Hematocrit 38.9 % (36.0-46.0); Monocytes # (auto) 0.9 10 ^3/uL (0-1.3); Neutrophils # (auto) 6.2 10 ^3/uL (1.6-8.6); Nucleated Red Blood Cells % 0.1 %; Red Cell Distribution Width 17.1 % (11.8-14.3)
[2022-11-20 13:11] LABS: Basophils % (auto) 0.6 % (0.0-2.0); Eosinophils % (auto) 8.4 % (0.0-7.0); Hemoglobin 12.6 g/dL (12.2-16.2); Lymphocytes # (auto) 3.4 10 ^3/uL (0.4-5.4); Lymphocytes % (auto) 29.4 % (10.0-50.0); Mean Corpuscular Hgb Conc. 32.3 g/dL (32.0-36.0); Mean Corpuscular Volume 80.6 fL (80.0-100.0); Monocytes % (auto) 7.7 % (0.0-12.0); Neutrophils % (auto) 53.9 % (37.0-80.0); Red Blood Cells 4.83 10^6/uL (4.0-5.20); White Blood Cell 11.5 10^3/uL (4.4-10.8)
[2022-11-20 13:46] LABS: Alanine Aminotransferase 19 U/L (7-40); Albumin 4.4 g/dL (3.2-4.8); Alkaline Phosphatase 176 U/L (46-116); Anion Gap 7 (5-15); Aspartate Aminotransferase 11 U/L (13-40); BUN/Creatinine Ratio 21.7 (10.0-20.0); Blood Urea Nitrogen 23 mg/dL (9-23); Calcium 9.4 mg/dL (8.5-10.1); Carbon Dioxide 29 mmol/L (20-30); Chloride 102 mmol/L (98-107); Glucose 141 mg/dL (74-106); LDL Cholesterol 84 mg/dL (< 100); Potassium 3.8 mmol/L (3.5-5.1); Sodium 138 mmol/L (136-145); Triglycerides 107 mg/dL (< 150)
[2022-11-20 13:47] LABS: Bilirubin, Direct 0.2 mg/dL (<0.3); Bilirubin, Total 0.6 mg/dL (0.2-1.0); Cholesterol 140 mg/dL (< 200); HDL Cholesterol 33 mg/dL (40-59); Total Protein 8.1 g/dL (5.7-8.2)
[2022-11-20 14:42] LABS: Magnesium 1.8 mg/dL (1.6-2.6)
[2022-11-20 15:58] LABS: Urine Bacteria FEW /hpf (None Seen); Urine Blood Negative /uL (Negative); Urine Clarity HAZY (Clear); Urine Color Yellow (Yellow); Urine Protein, UAD Negative (Negative); Urine Specific Gravity 1.017 (1.001-1.035); Urine Urobilinogen Normal (Negative); Urine WBC 28 /hpf (0 - 5)
== END | disposition home or self-care (01) ==
LOC: LAB 12:34
PROVIDERS: ATTEND Specialist
DX: I10 Essential (primary) hypertension (principal); R94.5 Abnormal results of liver function studies; D64.9 Anemia, unspecified; E11.8 Type 2 diabetes mellitus with unspecified complications; E78.5 Hyperlipidemia, unspecified; E03.9 Hypothyroidism, unspecified; E83.40 Disorders of magnesium metabolism, unspecified; M83.9 Adult osteomalacia, unspecified
CPT/HCPCS: 36415; 80048; 80061; 80076; 81001; 83036; 83735; 84443; 85025

== ENCOUNTER → 2022-12-06 | Outpatient (CLI) | payer OTHER ==
[2022-12-06 12:19] LABS: Basophils # (auto) 0.1 10 ^3/uL (0-0.2); Eosinophils # (auto) 0.7 10 ^3/uL (0-0.8); Mean Corpuscular Hemoglobin 25.8 pg (28.0-32.0); Monocytes # (auto) 0.7 10 ^3/uL (0-1.3); Nucleated Red Blood Cells % 0.1 %; Red Cell Distribution Width 17.4 % (11.8-14.3)
[2022-12-06 12:20] LABS: Basophils % (auto) 0.6 % (0.0-2.0); Eosinophils % (auto) 6.6 % (0.0-7.0); Hematocrit 38.4 % (36.0-46.0); Hemoglobin 12.3 g/dL (12.2-16.2); Lymphocytes # (auto) 3.3 10 ^3/uL (0.4-5.4); Lymphocytes % (auto) 33.8 % (10.0-50.0); Mean Corpuscular Hgb Conc. 31.9 g/dL (32.0-36.0); Mean Corpuscular Volume 80.9 fL (80.0-100.0); Neutrophils # (auto) 5.1 10 ^3/uL (1.6-8.6); Red Blood Cells 4.75 10^6/uL (4.0-5.20); White Blood Cell 9.9 10^3/uL (4.4-10.8)
[2022-12-06 13:11] LABS: Urine Bacteria FEW /hpf (None Seen); Urine Blood Negative /uL (Negative); Urine Clarity HAZY (Clear); Urine Color Yellow (Yellow); Urine Hyaline Cast FEW /lpf (0 - 2); Urine Mucus FEW (None Seen); Urine Protein, UAD TRACE (Negative); Urine Specific Gravity 1.017 (1.001-1.035); Urine Urobilinogen Normal (Negative); Urine WBC 146 /hpf (0 - 5); Urine pH 5.5 (5.0-8.0)
[2022-12-06 13:30] LABS: Alanine Aminotransferase 16 U/L (7-40); Alkaline Phosphatase 167 U/L (46-116); Anion Gap 8 (5-15); Aspartate Aminotransferase 17 U/L (13-40); BUN/Creatinine Ratio 16.4 (10.0-20.0); Blood Urea Nitrogen 22 mg/dL (9-23); Calcium 9.5 mg/dL (8.5-10.1); Carbon Dioxide 28 mmol/L (20-30); Chloride 100 mmol/L (98-107); Glucose 140 mg/dL (74-106); LDL Cholesterol 79 mg/dL (< 100); Potassium 3.8 mmol/L (3.5-5.1); Sodium 136 mmol/L (136-145); Triglycerides 99 mg/dL (< 150)
[2022-12-06 13:31] LABS: Albumin 4.3 g/dL (3.2-4.8); Bilirubin, Total 0.9 mg/dL (0.2-1.0); Cholesterol 132 mg/dL (< 200); HDL Cholesterol 31 mg/dL (40-59); Total Protein 7.8 g/dL (5.7-8.2)
[2022-12-06 13:36] LABS: Folate (Folic Acid) > 24.00 ng/mL (>5.38)
[2022-12-06 14:11] LABS: Uric Acid 6.3 mg/dL (3.1-7.8)
[2022-12-06 14:12] LABS: Magnesium 1.8 mg/dL (1.6-2.6)
== END | disposition home or self-care (01) ==
LOC: LAB 11:53
PROVIDERS: ATTEND Internal Medicine
DX: E61.2 Magnesium deficiency (principal); R68.89 Other general symptoms and signs; E78.41 Elevated Lipoprotein(a); R94.6 Abnormal results of thyroid function studies; E79.0 Hyperuricemia without signs of inflammatory arthritis and tophaceous disease; E55.9 Vitamin D deficiency, unspecified; R82.79 Other abnormal findings on microbiological examination of urine; R82.991 Hypocitraturia; R82.90 Unspecified abnormal findings in urine; D51.9 Vitamin B12 deficiency anemia, unspecified
CPT/HCPCS: 36415; 80053; 80061; 81001; 82306; 82607; 82746; 83036; 83735; 84443; 84550; 85025; 87086

== ENCOUNTER → 2022-12-25 | Outpatient (CLI) | payer OTHER ==
[2022-12-25 14:11] LABS: Protein, Urine 9.9 mg/dL (0.0-11.9)
[2022-12-25 14:13] LABS: 24 Hr. Total Protein, Urine 138.6 mg/24 Hr (<149.1)
== END | disposition home or self-care (01) ==
LOC: LAB 12:44
PROVIDERS: ATTEND Nurse Practitioner Family
DX: R79.89 Other specified abnormal findings of blood chemistry (principal); D51.9 Vitamin B12 deficiency anemia, unspecified; E55.9 Vitamin D deficiency, unspecified; R79.9 Abnormal finding of blood chemistry, unspecified
CPT/HCPCS: 84156

== ENCOUNTER → 2023-01-12 | Outpatient (CLI) | payer OTHER ==
[2023-01-12 14:46] LABS: Urine Bacteria MOD /hpf (None Seen); Urine Blood Negative /uL (Negative); Urine Clarity HAZY (Clear); Urine Color Yellow (Yellow); Urine Mucus FEW (None Seen); Urine Protein, UAD Negative (Negative); Urine Specific Gravity 1.019 (1.001-1.035); Urine Urobilinogen Normal (Negative); Urine WBC 33 /hpf (0 - 5); Urine pH 5.5 (5.0-8.0)
== END | disposition home or self-care (01) ==
LOC: LAB 10:54
PROVIDERS: ATTEND Internal Medicine
DX: E11.22 Type 2 diabetes mellitus with diabetic chronic kidney disease (principal); N18.30 Chronic kidney disease, stage 3 unspecified; D63.1 Anemia in chronic kidney disease; E11.21 Type 2 diabetes mellitus with diabetic nephropathy; N39.0 Urinary tract infection, site not specified; R80.9 Proteinuria, unspecified; E21.3 Hyperparathyroidism, unspecified; M10.9 Gout, unspecified; E55.9 Vitamin D deficiency, unspecified
CPT/HCPCS: 81001; 87086

== ENCOUNTER → 2023-03-28 | Outpatient (CLI) | payer OTHER ==
[2023-03-28 13:00] LABS: Basophils # (auto) 0.1 10 ^3/uL (0-0.2); Eosinophils # (auto) 0.9 10 ^3/uL (0-0.8); Lymphocytes # (auto) 2.7 10 ^3/uL (0.4-5.4); Mean Corpuscular Volume 82.6 fL (80.0-100.0); Monocytes # (auto) 0.7 10 ^3/uL (0-1.3); Red Cell Distribution Width 16.2 % (11.8-14.3)
[2023-03-28 13:02] LABS: Basophils % (auto) 0.8 % (0.0-2.0); Eosinophils % (auto) 9.7 % (0.0-7.0); Hematocrit 37.4 % (36.0-46.0); Lymphocytes % (auto) 27.6 % (10.0-50.0); Mean Corpuscular Hemoglobin 26.5 pg (28.0-32.0); Mean Corpuscular Hgb Conc. 32.2 g/dL (32.0-36.0); Monocytes % (auto) 7.4 % (0.0-12.0); Neutrophils # (auto) 5.2 10 ^3/uL (1.6-8.6); Neutrophils % (auto) 54.5 % (37.0-80.0); Nucleated Red Blood Cells % 0.1 %; Red Blood Cells 4.53 10^6/uL (4.0-5.20); White Blood Cell 9.6 10^3/uL (4.4-10.8)
[2023-03-28 13:06] LABS: Calcium 9.3 mg/dL (8.5-10.1)
[2023-03-28 13:11] LABS: Albumin 4.2 g/dL (3.2-4.8)
[2023-03-28 13:13] LABS: Phosphorus 3.2 mg/dL (2.4-5.1)
[2023-03-28 13:26] LABS: Urine Bacteria NONE SEEN /hpf (None Seen); Urine Blood Negative /uL (Negative); Urine Clarity HAZY (Clear); Urine Color Yellow (Yellow); Urine Hyaline Cast FEW /lpf (0 - 2); Urine Protein, UAD Negative (Negative); Urine Specific Gravity 1.015 (1.001-1.035); Urine Urobilinogen Normal (Negative); Urine WBC 3 /hpf (0 - 5)
[2023-03-28 13:30] LABS: Uric Acid 5.5 mg/dL (3.1-7.8)
[2023-03-28 13:40] LABS: Creatinine, Urine 154.82 mg/dL (30.0-125.0); Urine Protein/Creatinine Ratio 0.07
== END | disposition home or self-care (01) ==
LOC: LAB 12:18
PROVIDERS: ATTEND Internal Medicine
DX: E11.22 Type 2 diabetes mellitus with diabetic chronic kidney disease (principal); E11.21 Type 2 diabetes mellitus with diabetic nephropathy; N18.30 Chronic kidney disease, stage 3 unspecified; D63.1 Anemia in chronic kidney disease; R80.9 Proteinuria, unspecified; E21.3 Hyperparathyroidism, unspecified; N39.0 Urinary tract infection, site not specified; M10.9 Gout, unspecified; E55.9 Vitamin D deficiency, unspecified
CPT/HCPCS: 36415; 80069; 81001; 82306; 82570; 83036; 83970; 84156; 84550; 85025

== ENCOUNTER → 2023-06-22 | Outpatient (CLI) | payer OTHER ==
[2023-06-22 09:13] LABS: Basophils # (auto) 0.1 10 ^3/uL (0-0.2); Basophils % (auto) 0.7 % (0.0-2.0); Eosinophils # (auto) 1.1 10 ^3/uL (0-0.8); Eosinophils % (auto) 10.3 % (0.0-7.0); Hematocrit 38.1 % (36.0-46.0); Hemoglobin 12.1 g/dL (12.2-16.2); Lymphocytes # (auto) 3.2 10 ^3/uL (0.4-5.4); Lymphocytes % (auto) 31.6 % (10.0-50.0); Mean Corpuscular Hemoglobin 25.7 pg (28.0-32.0); Mean Corpuscular Hgb Conc. 31.6 g/dL (32.0-36.0); Mean Corpuscular Volume 81.2 fL (80.0-100.0); Monocytes # (auto) 0.9 10 ^3/uL (0-1.3); Monocytes % (auto) 8.5 % (0.0-12.0); Neutrophils % (auto) 48.9 % (37.0-80.0); Red Blood Cells 4.69 10^6/uL (4.0-5.20); Red Cell Distribution Width 16.2 % (11.8-14.3); White Blood Cell 10.2 10^3/uL (4.4-10.8)
[2023-06-22 09:49] LABS: Triglycerides 108 mg/dL (< 150)
[2023-06-22 09:50] LABS: Alanine Aminotransferase 21 U/L (7-40); Albumin 4.1 g/dL (3.2-4.8); Alkaline Phosphatase 181 U/L (46-116); Anion Gap 5 (5-15); Aspartate Aminotransferase 16 U/L (13-40); BUN/Creatinine Ratio 25.2 (10.0-20.0); Bilirubin, Direct 0.2 mg/dL (<0.3); Bilirubin, Total 0.6 mg/dL (0.2-1.0); Blood Urea Nitrogen 28 mg/dL (9-23); Calcium 9.4 mg/dL (8.5-10.1); Carbon Dioxide 31 mmol/L (20-30); Chloride 106 mmol/L (98-107); Cholesterol 147 mg/dL (< 200); Glucose 136 mg/dL (74-106); HDL Cholesterol 34 mg/dL (40-59); LDL Cholesterol 82 mg/dL (< 100); Sodium 142 mmol/L (136-145); Total Protein 7.2 g/dL (5.7-8.2)
[2023-06-22 09:58] LABS: CRP High Sensitivity 2.76 mg/dL (<1.0)
[2023-06-22 10:13] LABS: % Iron Saturation 22.3 % (15-50)
[2023-06-22 10:17] LABS: Follicle Stimulating Hormone 41.36 IU/L (SEE BELOW); Leuteinizing Hormone 19.3 IU/L
== END | disposition home or self-care (01) ==
LOC: LAB 08:53
PROVIDERS: ATTEND Specialist
DX: I10 Essential (primary) hypertension (principal); E78.5 Hyperlipidemia, unspecified; E11.8 Type 2 diabetes mellitus with unspecified complications; E03.9 Hypothyroidism, unspecified; R94.5 Abnormal results of liver function studies; D64.9 Anemia, unspecified; M83.9 Adult osteomalacia, unspecified; E58 Dietary calcium deficiency; E61.1 Iron deficiency
CPT/HCPCS: 36415; 80048; 80061; 80076; 82306; 83001; 83002; 83036; 83540; 83550; 83970; 84443; 85025; 86141

== ENCOUNTER → 2023-07-25 | Outpatient (CLI) | payer OTHER ==
[~2023-07-25] MED LIST changes: +BUPIVACAINE HCL 0.25% P/F 10 ML VIAL ONE; +IOHEXOL 300 MG/ML 100ML BOTTLE IJ ONE; +LIDOCAINE 2%HCL (LOCAL ANESTH.) INJ 10ml MDV ONE; +methylPREDNISolone ACETATE 80 MG/ML VL ONE
== END | disposition home or self-care (01) ==
LOC: XYW 13:46
PROVIDERS: ATTEND Orthopaedic Surgery Adult Reconstructive Orthopaedic Surgery
DX: M16.0 Bilateral primary osteoarthritis of hip (principal); G89.29 Other chronic pain; J44.9 Chronic obstructive pulmonary disease, unspecified; G47.30 Sleep apnea, unspecified; Z79.899 Other long term (current) drug therapy
CPT/HCPCS: 20610; 73501; 73502; 77002; J1010; J2001; J3490; Q9967

== ENCOUNTER → 2023-10-03 | Outpatient (CLI) | payer OTHER ==
[~2023-10-03] MED LIST changes: -BUPIVACAINE HCL 0.25% P/F 10 ML VIAL ONE; -IOHEXOL 300 MG/ML 100ML BOTTLE IJ ONE; -LIDOCAINE 2%HCL (LOCAL ANESTH.) INJ 10ml MDV ONE; -methylPREDNISolone ACETATE 80 MG/ML VL ONE
[2023-10-03 11:34] LABS: Basophils # (auto) 0.1 10 ^3/uL (0-0.2); Basophils % (auto) 0.8 % (0.0-2.0); Eosinophils # (auto) 0.8 10 ^3/uL (0-0.8); Hemoglobin 12.7 g/dL (12.2-16.2); Lymphocytes # (auto) 2.3 10 ^3/uL (0.4-5.4); Mean Corpuscular Hgb Conc. 32.9 g/dL (32.0-36.0); Monocytes # (auto) 0.7 10 ^3/uL (0-1.3)
[2023-10-03 11:36] LABS: Eosinophils % (auto) 8.7 % (0.0-7.0); Hematocrit 38.6 % (36.0-46.0); Lymphocytes % (auto) 26.1 % (10.0-50.0); Mean Corpuscular Hemoglobin 26.6 pg (28.0-32.0); Mean Corpuscular Volume 80.7 fL (80.0-100.0); Monocytes % (auto) 7.7 % (0.0-12.0); Neutrophils % (auto) 56.7 % (37.0-80.0); Nucleated Red Blood Cells % 0.3 %; Platelet Count (auto) 267 10^3/uL (140-450); Red Blood Cells 4.78 10^6/uL (4.0-5.20); Red Cell Distribution Width 16.4 % (11.8-14.3); White Blood Cell 8.7 10^3/uL (4.4-10.8)
[2023-10-03 11:53] LABS: Urine Bacteria None Seen /hpf (None Seen); Urine Blood Negative /uL (Negative); Urine Clarity Clear (Clear); Urine Color Light-Yellow (Yellow); Urine Protein, UAD TRACE (Negative); Urine Specific Gravity 1.023 (1.001-1.035); Urine Urobilinogen Normal (Negative); Urine WBC 2 /hpf (0 - 5)
[2023-10-03 12:55] LABS: Creatinine, Urine 161.15 mg/dL (30.0-125.0)
[2023-10-03 12:57] LABS: Micro Albumin < 3.0 mg/L (<30.0)
[2023-10-03 12:58] LABS: Alanine Aminotransferase 18 U/L (7-40); Albumin 4.1 g/dL (3.2-4.8); Alkaline Phosphatase 176 U/L (46-116); Aspartate Aminotransferase 16 U/L (13-40); BUN/Creatinine Ratio 14.9 (10.0-20.0); Blood Urea Nitrogen 13 mg/dL (9-23); GFR African American 81 mL/min; GFR Non-African American 67 mL/min; Glucose 134 mg/dL (74-106); LDL Cholesterol 78 mg/dL (< 100); Triglycerides 102 mg/dL (< 150)
[2023-10-03 12:59] LABS: Bilirubin, Total 0.6 mg/dL (0.2-1.0); Cholesterol 135 mg/dL (< 200); HDL Cholesterol 34 mg/dL (40-59); Phosphorus 2.9 mg/dL (2.4-5.1); Total Protein 7.5 g/dL (5.7-8.2)
[2023-10-03 13:01] LABS: Folate (Folic Acid) 10.77 ng/mL (>5.38)
[2023-10-03 13:24] LABS: Chloride 108 mmol/L (98-107); Potassium 3.6 mmol/L (3.5-5.1); Sodium 140 mmol/L (136-145)
[2023-10-03 13:29] LABS: Anion Gap 8 (5-15); Calcium 9.3 mg/dL (8.7-10.4); Carbon Dioxide 24 mmol/L (20-30)
[2023-10-03 13:40] LABS: Uric Acid 5.8 mg/dL (3.1-7.8)
== END | disposition home or self-care (01) ==
LOC: LAB 11:07
PROVIDERS: ATTEND Internal Medicine
DX: E21.3 Hyperparathyroidism, unspecified (principal); R78.89 Finding of other specified substances, not normally found in blood; N18.30 Chronic kidney disease, stage 3 unspecified; E56.9 Vitamin deficiency, unspecified; M10.9 Gout, unspecified; R80.9 Proteinuria, unspecified; D63.1 Anemia in chronic kidney disease; E78.9 Disorder of lipoprotein metabolism, unspecified; R68.89 Other general symptoms and signs; R73.09 Other abnormal glucose
CPT/HCPCS: 36415; 80053; 80061; 80069; 81001; 82043; 82306; 82570; 82607; 82746; 83036; 83970; 84443; 84550; 85025; 87086

== ENCOUNTER → 2023-10-18 | Outpatient (CLI) | payer OTHER ==
[~2023-10-18] MED LIST changes: +BUPIVACAINE HCL 0.25% P/F 10 ML VIAL ONE; +IOHEXOL 300 MG/ML 100ML BOTTLE IJ ONE; +LIDOCAINE 2%HCL (LOCAL ANESTH.) INJ 10ml MDV ONE; +methylPREDNISolone ACETATE 80 MG/ML VL ONE
== END | disposition home or self-care (01) ==
LOC: XYW 10:09
PROVIDERS: ATTEND Orthopaedic Surgery Adult Reconstructive Orthopaedic Surgery
DX: M16.0 Bilateral primary osteoarthritis of hip (principal); G47.30 Sleep apnea, unspecified; J44.9 Chronic obstructive pulmonary disease, unspecified; Z87.891 Personal history of nicotine dependence
CPT/HCPCS: 20610; 73501; 77002; J1010; J2001; J3490; Q9967

== ENCOUNTER → 2023-11-21 | Outpatient (CLI) | payer OTHER ==
[~2023-11-21] MED LIST changes: -BUPIVACAINE HCL 0.25% P/F 10 ML VIAL ONE; -IOHEXOL 300 MG/ML 100ML BOTTLE IJ ONE; -LIDOCAINE 2%HCL (LOCAL ANESTH.) INJ 10ml MDV ONE; -methylPREDNISolone ACETATE 80 MG/ML VL ONE
[2023-11-21 12:10] LABS: Basophils # (auto) 0 10 ^3/uL (0-0.2); Basophils % (auto) 0.5 % (0.0-2.0); Eosinophils # (auto) 0.6 10 ^3/uL (0-0.8); Hemoglobin 12.5 g/dL (12.2-16.2)
[2023-11-21 12:12] LABS: Eosinophils % (auto) 7.7 % (0.0-7.0); Hematocrit 37.3 % (36.0-46.0); Lymphocytes # (auto) 2.8 10 ^3/uL (0.4-5.4); Lymphocytes % (auto) 34.2 % (10.0-50.0); Mean Corpuscular Hemoglobin 26.5 pg (28.0-32.0); Mean Corpuscular Hgb Conc. 33.4 g/dL (32.0-36.0); Mean Corpuscular Volume 79.4 fL (80.0-100.0); Monocytes # (auto) 0.8 10 ^3/uL (0-1.3); Monocytes % (auto) 9.8 % (0.0-12.0); Neutrophils # (auto) 3.9 10 ^3/uL (1.6-8.6); Neutrophils % (auto) 47.8 % (37.0-80.0); Platelet Count (auto) 246 10^3/uL (140-450); Red Cell Distribution Width 15.8 % (11.8-14.3); White Blood Cell 8.2 10^3/uL (4.4-10.8)
[2023-11-21 12:53] LABS: Alanine Aminotransferase 15 U/L (7-40); Alkaline Phosphatase 162 U/L (46-116); Anion Gap 7 (5-15); Aspartate Aminotransferase 12 U/L (13-40); BUN/Creatinine Ratio 16.3 (10.0-20.0); Bilirubin, Direct 0.1 mg/dL (<0.3); Blood Urea Nitrogen 16 mg/dL (9-23); Calcium 9.3 mg/dL (8.7-10.4); Carbon Dioxide 27 mmol/L (20-31); Chloride 108 mmol/L (98-107); Cholesterol 131 mg/dL (< 200); Glucose 149 mg/dL (74-106); HDL Cholesterol 36 mg/dL (40-59); LDL Cholesterol 78 mg/dL (< 100); Potassium 3.7 mmol/L (3.5-5.1); Sodium 142 mmol/L (136-145); Triglycerides 102 mg/dL (< 150)
[2023-11-21 12:54] LABS: Bilirubin, Total 0.4 mg/dL (0.2-1.0); Total Protein 7.2 g/dL (5.7-8.2)
== END | disposition home or self-care (01) ==
LOC: LAB 11:36
PROVIDERS: ATTEND Specialist
DX: I10 Essential (primary) hypertension (principal); E11.9 Type 2 diabetes mellitus without complications; D64.9 Anemia, unspecified; E78.5 Hyperlipidemia, unspecified
CPT/HCPCS: 36415; 80053; 80061; 82248; 84443; 85025

== ENCOUNTER → 2024-01-07 | Outpatient (CLI) | payer OTHER ==
[2024-01-07 11:05] LABS: Basophils # (auto) 0.1 10 ^3/uL (0-0.2); Eosinophils # (auto) 0.5 10 ^3/uL (0-0.8); Mean Corpuscular Hemoglobin 25.5 pg (28.0-32.0)
[2024-01-07 11:09] LABS: Basophils % (auto) 1.5 % (0.0-2.0); Eosinophils % (auto) 7.3 % (0.0-7.0); Hematocrit 41.2 % (36.0-46.0); Hemoglobin 13.4 g/dL (12.2-16.2); Lymphocytes # (auto) 2.8 10 ^3/uL (0.4-5.4); Lymphocytes % (auto) 43.1 % (10.0-50.0); Mean Corpuscular Hgb Conc. 32.6 g/dL (32.0-36.0); Mean Corpuscular Volume 78.4 fL (80.0-100.0); Monocytes # (auto) 0.5 10 ^3/uL (0-1.3); Monocytes % (auto) 8.3 % (0.0-12.0); Neutrophils # (auto) 2.6 10 ^3/uL (1.6-8.6); Neutrophils % (auto) 39.8 % (37.0-80.0); Nucleated Red Blood Cells % 0.2 %; Platelet Count (auto) 273 10^3/uL (140-450); Red Blood Cells 5.26 10^6/uL (4.0-5.20); Red Cell Distribution Width 16.3 % (11.8-14.3); White Blood Cell 6.6 10^3/uL (4.4-10.8)
[2024-01-07 11:46] LABS: Alanine Aminotransferase 29 U/L (7-40); Albumin 4.2 g/dL (3.2-4.8); Alkaline Phosphatase 183 U/L (46-116); Anion Gap 10 (5-15); Aspartate Aminotransferase 26 U/L (13-40); BUN/Creatinine Ratio 10.4 (10.0-20.0); Bilirubin, Direct 0.2 mg/dL (<0.3); Bilirubin, Total 0.7 mg/dL (0.2-1.0); Blood Urea Nitrogen 10 mg/dL (9-23); Calcium 9.4 mg/dL (8.7-10.4); Carbon Dioxide 23 mmol/L (20-31); Chloride 107 mmol/L (98-107); Cholesterol 140 mg/dL (< 200); Glucose 161 mg/dL (74-106); HDL Cholesterol 35 mg/dL (40-59); LDL Cholesterol 82 mg/dL (< 100); Potassium 3.9 mmol/L (3.5-5.1); Sodium 140 mmol/L (136-145); Total Protein 7.6 g/dL (5.7-8.2); Triglycerides 138 mg/dL (< 150)
== END | disposition home or self-care (01) ==
LOC: LAB 10:41
PROVIDERS: ATTEND Specialist
DX: E11.9 Type 2 diabetes mellitus without complications (principal); D64.9 Anemia, unspecified; I10 Essential (primary) hypertension; E78.5 Hyperlipidemia, unspecified; R68.89 Other general symptoms and signs; E03.9 Hypothyroidism, unspecified
CPT/HCPCS: 36415; 80053; 80061; 80076; 83036; 85025

== ENCOUNTER → 2024-02-27 | Outpatient (CLI) | payer OTHER ==
[~2024-02-27] MED LIST changes: +BUPIVACAINE HCL 0.25% P/F 10 ML VIAL ONE; +IOHEXOL 300 MG/ML 100ML BOTTLE IJ ONE; +LIDOCAINE 2%HCL (LOCAL ANESTH.) INJ 10ml MDV ONE; +methylPREDNISolone ACETATE 80 MG/ML VL ONE
--- NOTE | 2024-02-27 13:13 | DVH ---
PROCEDURE: RIGHT Hip Steroid Injection HISTORY: 78 Female pain DOCUMENTATION: Informed consent was obtained and a procedural time out was performed. Technique: Following adequate sterile preparation with chloroprep solution and local anesthesia using 1% lidocai ne, a 22-gauge needle was introduced into the RIGHT hip joint using intermittent fluoroscopic guidan ce. Intra-articular location of the needle tip was confirmed with a small amount of Omnipaque contras t. Subsequently 80 mg of Depo-Medrol and 6 cc of 1% bupivacaine were injected slowly into the joint space. No immediate complications were seen. FINDINGS: There is contrast opacification of the joint capsule. There is washout of contrast upon Jesus roid injection. Impression: Uneventful RIGHT hip injection with Depo-Medrol and bupivacaine as described above.
== END | disposition home or self-care (01) ==
LOC: XYW 10:56
PROVIDERS: ATTEND Orthopaedic Surgery Adult Reconstructive Orthopaedic Surgery
DX: M16.0 Bilateral primary osteoarthritis of hip (principal)
CPT/HCPCS: 72170; 76000; J1010; J2003; J3490; Q9967

== ENCOUNTER → 2024-04-04 | Outpatient (CLI) | payer OTHER ==
[~2024-04-04] MED LIST changes: -BUPIVACAINE HCL 0.25% P/F 10 ML VIAL ONE; -IOHEXOL 300 MG/ML 100ML BOTTLE IJ ONE; -LIDOCAINE 2%HCL (LOCAL ANESTH.) INJ 10ml MDV ONE; -methylPREDNISolone ACETATE 80 MG/ML VL ONE
[2024-04-04 13:21] LABS: Basophils # (auto) 0.1 10 ^3/uL (0-0.2); Eosinophils # (auto) 0.4 10 ^3/uL (0-0.8); Monocytes # (auto) 0.8 10 ^3/uL (0-1.3)
[2024-04-04 13:25] LABS: Basophils % (auto) 1.1 % (0.0-2.0); Eosinophils % (auto) 4.1 % (0.0-7.0); Hematocrit 41.2 % (36.0-46.0); Hemoglobin 13.1 g/dL (12.2-16.2); Lymphocytes # (auto) 2.8 10 ^3/uL (0.4-5.4); Lymphocytes % (auto) 28.3 % (10.0-50.0); Mean Corpuscular Hemoglobin 25.1 pg (28.0-32.0); Mean Corpuscular Hgb Conc. 31.7 g/dL (32.0-36.0); Monocytes % (auto) 7.7 % (0.0-12.0); Neutrophils # (auto) 5.9 10 ^3/uL (1.6-8.6); Neutrophils % (auto) 58.8 % (37.0-80.0); Platelet Count (auto) 276 10^3/uL (140-450); Red Blood Cells 5.21 10^6/uL (4.0-5.20); Red Cell Distribution Width 16.8 % (11.8-14.3)
[2024-04-04 13:35] LABS: Urine Bacteria FEW /hpf (None Seen); Urine Blood Negative /uL (Negative); Urine Clarity Clear (Clear); Urine Color Yellow (Yellow); Urine Mucus FEW (None Seen); Urine Protein, UAD TRACE (Negative); Urine Specific Gravity 1.025 (1.001-1.035); Urine Squamous Epithelial Cell FEW /hpf (<5); Urine Urobilinogen Normal (Negative); Urine WBC 3 /HPF (0-5)
[2024-04-04 13:48] LABS: Alanine Aminotransferase 17 U/L (7-40); Albumin 4.4 g/dL (3.2-4.8); Anion Gap 10 (5-15); Aspartate Aminotransferase 14 U/L (13-40); BUN/Creatinine Ratio 15.2 (10.0-20.0); Blood Urea Nitrogen 15 mg/dL (9-23); Calcium 9.6 mg/dL (8.7-10.4); Carbon Dioxide 27 mmol/L (20-31); Chloride 102 mmol/L (98-107); Cholesterol 140 mg/dL (< 200); LDL Cholesterol 83 mg/dL (< 100); Potassium 3.6 mmol/L (3.5-5.1); Sodium 139 mmol/L (136-145); Total Protein 7.6 g/dL (5.7-8.2); Triglycerides 105 mg/dL (< 150)
[2024-04-04 13:49] LABS: Alkaline Phosphatase 166 U/L (46-116); Bilirubin, Total 0.6 mg/dL (0.2-1.0); Glucose 159 mg/dL (74-106); HDL Cholesterol 36 mg/dL (40-59)
[2024-04-04 14:06] LABS: Uric Acid 7.3 mg/dL (3.1-7.8)
[2024-04-04 15:03] LABS: Folate (Folic Acid) 10.73 ng/mL (>5.38)
== END | disposition home or self-care (01) ==
LOC: LAB 12:23
PROVIDERS: ATTEND Internal Medicine
DX: E61.2 Magnesium deficiency (principal); E55.9 Vitamin D deficiency, unspecified; D51.9 Vitamin B12 deficiency anemia, unspecified; E78.49 Other hyperlipidemia; E79.0 Hyperuricemia without signs of inflammatory arthritis and tophaceous disease; R94.6 Abnormal results of thyroid function studies; R82.79 Other abnormal findings on microbiological examination of urine; R82.998 Other abnormal findings in urine; R73.09 Other abnormal glucose; R68.89 Other general symptoms and signs; R82.90 Unspecified abnormal findings in urine
CPT/HCPCS: 36415; 80053; 80061; 81001; 82607; 82746; 83036; 84443; 84550; 85025; 87086

== ENCOUNTER → 2024-06-06 | Outpatient (CLI) | payer OTHER ==
[~2024-06-06] MED LIST changes: +LIDOCAINE 2%HCL (LOCAL ANESTH.) INJ 10ml MDV IJ ONE
--- NOTE | 2024-06-06 13:23 | DVH ---
XY R HIP 1V XRAY HISTORY: B/L PRIMARY OA OF HIP COMPARISON: XY R HIP 1V XRAY on DOS: 10/18/23, XY L HIP 1V XRAY on DOS: 10/18/23, XY R HIP 1V XRAY on D OS: 07/25/23 PROCEDURE: The risks and benefits of the procedure including infection, hemorrhage and technical failure were di scussed with the patient, who agreed to proceed. The patient was positioned supine on the fluoroscopy table. Time out was performed. The left and righ t was localized using fluoroscopy, and the location on the skin for needle insertion was marked. The region was prepped and draped using routine sterile technique. Approximately 2 cc of lidocaine was in jected for local anesthesia. A 22 gauge spinal needle was inserted, and intra-articular location was confirmed by injection of less than 1 cc of iodinated contrast. 1 cc of methylprednisolone (80 mg/cc) and 4 cc of Bupivacaine (0.25%) and 5 cc of 2% Lidocaine was then injected without complication. Flu oroscopy time was 1.3 minutes. The patient was informed of the temporary precautions to take following the procedure as well as of t he potential signs and symptoms which may indicate the need to contact physician, and expressed unde rstanding of this discussion. IMPRESSION: Successful steroid and anesthetic injection of the right and left.
== END | disposition home or self-care (01) ==
LOC: XYW 11:01
PROVIDERS: ATTEND Orthopaedic Surgery Adult Reconstructive Orthopaedic Surgery
DX: M16.0 Bilateral primary osteoarthritis of hip (principal); J44.9 Chronic obstructive pulmonary disease, unspecified; G47.30 Sleep apnea, unspecified; Z79.899 Other long term (current) drug therapy; Z87.891 Personal history of nicotine dependence
CPT/HCPCS: 20610; 77002; J1010; J2003; J3490; Q9967; 73501

== ENCOUNTER 2024-06-27 13:21 | Emergency (ER) | payer OTHER ==
[~2024-06-27] VITALS: Ht 170.2 cm; Wt 134.6 kg
[~2024-06-27 13:21] MED LIST changes: -LIDOCAINE 2%HCL (LOCAL ANESTH.) INJ 10ml MDV IJ ONE
[2024-06-27 14:11] VITALS: BP 146/82; PULSE 96; RESP 20; TEMP 97.9; O2SAT 97
[2024-06-27] MEDS ORDERED: CLIN1CAP70 PO (14:17)
[2024-06-27] MEDS ORDERED: NYS5LQ MT (14:17)
--- NOTE | 2024-06-27 14:19 | ED.PDOC ---
Eye-HPI HPI Comments A 79 YEAR OLD FEMALE PRESENTS TO THE ED WITH COMPLAINT OF TONGUE IRRITATION AND BLISTER. PATIENT STATES SHE HAS BEEN EXPERIENCING TONGUE IRRITATION AND BLISTERS FOR THE PAST 2 MONTHS. PATIENT REPORTS SHE HAS BEEN TO AN URGENT CARE AND HER PRIMARY CARE PHYSICIAN AND WAS NOT PRESCRIBED ANYTHING. PATIENT DENIES FEVER, CHILLS, SHORTNESS OF BREATH, CHEST PAIN, ABDOMINAL PAIN, NAUSEA, VOMITING, HEADACHE, OR OTHER COMPLAINTS. NO OTHER SYMPTOMS OR MODIFYING FACTORS AT THIS TIME. PATIENT IS ALERT, ORIENTED X 4, AND HAS STEADY GAIT. Chief Complaint: Thrush Time Seen by MD: 13:42 Primary Care Provider: BRITTANI Reviewed Notes: Nurses Notes, Medications, Allergies Allergies: Coded Allergies: NO KNOWN ALLERGIES (Unverified , 01/13/20) Home Meds Active Scripts Nystatin (Mouth-Throat) (Mycostatin (Mouth-Throat)) 500,000 Units/5 Ml Ss, 5 ML MT QID for 10 Days, #200 ML Prov:LISETTE MONTERROSO 06/27/24 Clindamycin Hcl (Clindamycin Hcl) 300 Mg Cap, 300 MG PO QID, #32 CAP Prov:LISETTE MONTERROSO 06/27/24 Reported Medications Hydrochlorothiazide (Hydrochlorothiazide) 25 Mg Tab, 25 MG PO DAILY, MG 01/13/20 Clonidine Hydrochloride (Clonidine Hcl) 0.1 Mg Tab, 0 PO BID, MG TAKE 1 TAB PO QAM & 2 TABS PO HS 01/13/20 Rabeprazole Sodium (Aciphex) 20 Mg Tab, 1 TAB PO DAILY, #90 TAB 1 Refill 01/13/20 Albuterol Sulfate (VENTOLIN MDI) 90 Mcg Ih, 2 PUFF IN QIDP, INH 01/13/20 Amlodipine Besylate (Amlodipine Besylate) 10 Mg Tab, 1 TAB PO DAILY, #30 TAB 5 Refills 01/13/20 Fluticasone-Salmeterol (Advair Diskus 250/50) 1 Puff Ih, 1 PUFF INH BID, #3 INHALER 3 Refills 01/13/20 Furosemide (Furosemide) 40 Mg Tab, 40 MG PO DAILY 01/13/20 Atorvastatin Calcium (ATORVASTATIN CALCIUM) 40 Mg Tab, 1 TAB PO HS, #30 TAB 5 Refills 01/13/20 Lisinopril (Lisinopril) 20 Mg Tab, 20 MG PO DAILY for 30 Days, MG 01/13/20 Metoprolol Tartrate (Lopressor) 25 Mg Tb, 25 MG PO BID, TAB 0 Refills 01/13/20 Diclofenac Sodium (Diclofenac Sodium Dr) 75 Mg Tab, 1 TAB PO BID, #60 TAB 1 Refill 01/13/20 Albuterol Sulfate (Albuterol Sulfate) 0.083 % Neb, 1 VIAL NEB Q4-6HPRN, #50 VIAL 01/13/20 Insulin Lispro Protamine & Lis (Humalog Mix 75/25 Kwikpen) 75 Mg/25 Kwp Inj, 20 UNITS SC BID, INJ 01/13/20 Tiotropium [place] Monohydrate (Spiriva Respimat) 2.5 Mcg/Act Spr, 1 PUFF IN BID, SPRAY 01/13/20 Benzonatate (Benzonatate) 100 Mg Cap, 100 MG PO TIDP, CAP 01/13/20 Acetaminophen (Acetaminophen Extra Stren) 500 Mg Tab, 500 MG PO Q6HP, TAB 01/13/20 Levothyroxine Sodium (Levothyroxine Sodium) 125 Mcg Tab, 125 MCG PO DAILY for 30 Days, MCG 01/13/20 Information Source: Patient Mode of Arrival: Ambulatory Timing: Months Duration: Since onset Prehospital treatment: None Quality: Pain, Red Lids: Normal Conjunctiva: Normal Cornea: Normal Pupils: Normal EOM: Normal Fundus: Normal Slit lamp exam: Normal Anterior chamber: Normal Mouth Location: Tongue Mouth: Normal ENT Ear Exam: Normal, Normal, Normal Nose: Normal Sinuses: Normal Oropharynx: Normal Onset: Spontaneous Throat Exposed to: None History of: None Last Tetanus: Unknown Modifying factors: Nothing Associated signs and symptoms: Other (TONGUE BLISTERS), None Past Medical History PAST MEDICAL HISTORY: DM, HTN Surgical History: Denies all surgeries CHEMICAL PATHOLOGIST History: No Pertinent CHEMICAL PATHOLOGIST History Family History Family History: Reviewed,noncontributory to illness Social History Smoker: Non-Smoker Alcohol: Denies ETOH Use Drugs: Denies Drug Use Lives In: Home Constitutional: denies: chills, diaphoresis, fatigue, fever, malaise, sweats, weakness, others EENTM: reports: mouth pain (TONGUE IRRITATION AND BLISTER); denies: blurred vision, double vision, ear bleeding, ear discharge, ear drainage, ear pain, ear ringing, eye pain, eye redness, hearing loss, mouth swelling, nasal discharge, nose bleeding, nose congestion, nose pain, photophobia, tearing, throat pain, throat swelling, voice changes, others Respiratory: denies: cough, hemoptysis, orthopnea, SOB at rest, shortness of breath, SOB with excertion, stridor, wheezing, others Cardiovascular: denies: chest pain, dizzy spells, diaphoresis, Dyspnea on exertion, edema, irregular heart beat, left arm pain, lightheadedness, palpitations, PND, syncope, others Gastrointestinal: denies: abdomen distended, abdominal pain, blood streaked bowels, constipated, diarrhea, dysphagia, difficulty swallowing, hematemesis, melena, nausea, poor appetite, poor fluid intake, rectal bleeding, rectal pain, vomiting, others Genitourinary: denies: abnormal vagina bleeding, burning, dyspareunia, dysuria, flank pain, frequency, hematuria, incontinence, pain, , vagina discharge, urgency, others Neurological: denies: dizziness, fainting, headache, left sided numbness, left sided weakness, numbness, paresthesia, pre-existing deficit, right sided numbness, right sided weakness, seizure, speech problems, tingling, tremors, weakness, others Musculoskeletal: denies: back pain, gout, joint pain, joint swelling, muscle pain, muscle stiffness, neck pain, others Integumetry: denies: bruises, change in color, change in hair/nails, dryness, laceration, lesions, lumps, rash, wounds, others Allergic/Immunocompromised: denies: Difficulty Healing, Frequent Infections, Hives, Itching, others Hematologic/Lymphatic: denies: anemia, blood clots, easy bleeding, easy bruising, swollen glands, others Endocrine: denies: excessive hunger, excessive sweating, excessive thirst, excessive urination, flushing, intolerance to cold, intolerance to heat, une xplained weight gain, unexplained weight loss, others Psychiatric: denies: anxiety, bipolar disorder, depression, hopeless, panic disorder, schizophrenia, sleepless, suicidal, others All Other Systems: Reviewed and Negative Physical Exam General Appearance: No Apparent Distress, Normal HEENT: Normal ENT Inspection, PERRL/EOMI, Pharynx Normal, TMs Normal, Other (A FEW SMALL BLISTERS ON BILATERAL TONGUE, NO SWELLING AND COLOR CHANGE. ) Neck: Full Range of Motion, Non-Tender, Normal, Normal Inspection Respiratory: Chest Non-Tender, Lungs Clear, No Accessory Muscle Use, No Respiratory Distress, Normal Breath Sounds Cardiovascular: No Edema, No JVD, No Murmur, No Gallop, Normal Peripheral Pulses, Regular Rate/Rhythm Breast Exam: Deferred Gastrointestinal: No Organomegaly, Non Tender, No Pulsatile Mass, Normal Bowel Sounds, Soft Genitalia: Deferred Pelvic: Deferred Rectal: Deferred Extremities: No calf tenderness, Normal capillary refill, Normal inspection, Normal range of motion, Non-tender, No pedal edema Musculoskeletal : Apperance: Normal Neurologic: Alert, tubing tester II-XII nml as Tested, No Motor Deficits, Normal Affect, Normal Mood, No Sensory Deficits Cerebellar Function: Normal Reflexes: Normal Skin: Dry, Normal Color, Warm Peripheral Pulses: 2+ carotid (R), 2+ carotid (L) Lymphatic: No Adenopathy Was a procedure done? Was a procedure done?: No EENT DIFF Eye: N/A Ear: N/A Nose: N/A Mouth: Thrush, Other (TONGUE BLISTER, TONGUE IRRITATION) Sore Throat: N/A X-Ray, Labs, Meds, VS Vital Signs Date Time Temp Pulse Resp B/P (MAP) Pulse Ox O2 Delivery O2 Flow Rate FiO2 06/27/24 14:11 96 06/27/24 14:11 97.9 96 20 146/82 (103) 97 97.9 06/27/24 13:38 97.9 96 20 146/82 (103) 97 97.9 X-Ray, Labs, Meds, VS Comment EXTERNAL MEDICAL RECORDS REVIEWED: [NONE] INDEPENDENT HISTORIANS: [NONE] SOCIAL DETERMINANTS OF HEALTH: [NONE] LABS ORDERED: NONE REVIEWED AND INTERPRETED RESULTS: NONE IMAGING ORDERED: NONE TREATMENTS ORDERED: NONE PROCEDURES PERFORMED: NONE CRITICAL CARE TIME: NONE I HAVE DISCUSSED THE PATIENT WITH THE ATTENDING PHYSICIAN DR. TAPIA AND HE AGREES WITH THE PATIENT'S PLAN OF CARE AND DISPOSITION. BASED ON HISTORY OF PRESENT ILLNESS, AND PHYSICAL EXAM, PATIENT WILL BE DISCHARGED HOME. DISCUSSED PLAN FOR DISCHARGE HOME WITH RX [CLINDAMYCIN AND NYSTATIN]. MEDICATION WARNINGS GIVEN. SHARED DECISION MAKING: PATIENT INSTRUCTED TO FOLLOW UP WITH PRIMARY CARE PROVIDER IN 1-2 DAYS FOR RE-EVALUATION OF SYMPTOMS. PATIENT VERBALIZES UNDERSTANDING TO RETURN TO ED FOR NEW OR WORSENING SYMPTOMS OR IF FOLLOW UP WITH PCP CANNOT BE OBTAINED. PATIENT FEELS COMFORTABLE GOING HOME AT THIS TIME. ALL QUESTIONS ADDRESSED AT TIME OF DISCHARGE. Time of 1ST Reevaluation: 14:30 Reevaluation 1ST: Improved Patient Education/Counseling: Diagnosis, Treatment, Need For Follow Up Family Education/Counseling: Diagnosis, Treatment, Need For Follow Up Medical Screening: No EMC Exist At This Time Departure 1 Departure Time of Disposition: 14:30 Impression: Primary Impression: Tongue sore Additional Impression: Oral thrush Disposition: 01 HOME / SELF CARE / HOMELESS Condition: Stable Additional Instructions: FOLLOW-UP WITH PCP IN 1 TO 2 DAYS. TAKE MEDICATIONS PRESCRIBED. RETURN TO ED FOR ANY NEW OR WORSENING SYMPTOMS. e-Prescriptions Nystatin (Mouth-Throat) (Mycostatin (Mouth-Throat)) 500,000 Units/5 Ml Ss 5 ML MT QID for 10 Days, #200 ML Prov: LISETTE MONTERROSO 06/27/24 Clindamycin Hcl (Clindamycin Hcl) 300 Mg Cap 300 MG PO QID, #32 CAP Prov: LISETTE MONTERROSO 06/27/24 Discharged With: Self Critical Care Note Critical Care Time?: No Stability Stability form required: No I personally scribed for LISETTE MONTERROSO ([email or web address]) on 06/27/24 at 14:19. Electronically submitted by Levon Mckeon ([email or web address]). LISETTE MONTERROSO June 27, 2024 14:19
== END 2024-06-27 14:33 | disposition home or self-care (01) ==
LOC: ER 13:21
DX: B37.0 Candidal stomatitis (principal); I10 Essential (primary) hypertension; E11.9 Type 2 diabetes mellitus without complications; Z79.899 Other long term (current) drug therapy

== ENCOUNTER 2024-07-15 11:59 | Outpatient (CLI) | payer OTHER ==
[~2024-07-15 11:59] MED LIST changes: +CLIN1CAP70 PO; +NYS5LQ MT
[2024-07-15 12:43] LABS: Alanine Aminotransferase 27 U/L (7-40); Albumin 4.3 g/dL (3.2-4.8); Anion Gap 11 (5-15); Aspartate Aminotransferase 17 U/L (13-40); BUN/Creatinine Ratio 14.3 (10.0-20.0); Blood Urea Nitrogen 12 mg/dL (9-23); Calcium 9.6 mg/dL (8.7-10.4); Carbon Dioxide 23 mmol/L (20-31); Chloride 105 mmol/L (98-107); LDL Cholesterol 89 mg/dL (< 100); Potassium 3.8 mmol/L (3.5-5.1); Sodium 139 mmol/L (136-145); Total Protein 7.5 g/dL (5.7-8.2); Triglycerides 99 mg/dL (< 150)
[2024-07-15 12:44] LABS: Alkaline Phosphatase 168 U/L (46-116); Bilirubin, Total 0.6 mg/dL (0.2-1.0); Cholesterol 145 mg/dL (< 200); Glucose 144 mg/dL (74-106); HDL Cholesterol 35 mg/dL (40-59)
[2024-07-15 13:04] LABS: Protein, Urine 9.7 mg/dL (1-14)
[2024-07-15 13:05] LABS: Creatinine, Urine 144.63 mg/dL (30.0-125.0); Urine Protein/Creatinine Ratio 0.07
[2024-07-15 13:13] LABS: Micro Albumin < 3.0 mg/L (<30.0)
== END 2024-07-15 17:00 | disposition home or self-care (01) ==
LOC: LAB 11:59
PROVIDERS: ATTEND Internal Medicine Endocrinology, Diabetes & Metabolism
DX: E11.9 Type 2 diabetes mellitus without complications (principal)
CPT/HCPCS: 36415; 80053; 80061; 82043; 82570; 83036; 84156

== ENCOUNTER 2024-10-16 12:43 | Outpatient (CLI) | payer OTHER ==
[2024-10-16] MEDS ORDERED: BUPIVACAINE HCL 0.25% P/F 10 ML VIAL ONE (12:57)
[2024-10-16] MEDS ORDERED: methylPREDNISolone ACETATE 80 MG/ML VL ONE (12:57)
[2024-10-16] MEDS ORDERED: LIDOCAINE 2%HCL (LOCAL ANESTH.) INJ 10ml MDV ONE (12:58)
[2024-10-16] MEDS ORDERED: IOHEXOL 300 MG/ML 100ML BOTTLE IJ ONE (12:58)
--- NOTE | 2024-10-16 14:29 | DVH ---
XY FLUOROGUIDANCE FOR NEEDLE PLAC, XY L HIP 1V XRAY, XY R HIP 1V XRAY HISTORY: PRIMARY OA BL HIP COMPARISON: XY FLUOROGUIDANCE FOR NEEDLE PLAC on DOS: 06/06/24, XY C ARM FLUOROSCOPY UP TO 60MIN on DOS : 02/27/24, XY FLUOROGUIDANCE FOR NEEDLE PLAC on DOS: 10/18/23 PROCEDURE: The risks and benefits of the procedure including infection, hemorrhage and technical failure were di scussed with the patient, who agreed to proceed. The patient was positioned supine on the fluoroscopy table. Time out was performed. The right and lef t was localized using fluoroscopy, and the location on the skin for needle insertion was marked. The region was prepped and draped using routine sterile technique. Approximately 2 cc of lidocaine was in jected for local anesthesia. A 21 gauge spinal needle was inserted, and intra-articular location was confirmed by injection of less than 1 cc of iodinated contrast. 1 cc of methylprednisolone (80 mg/cc) and 4 cc of Bupivacaine (0.25%) and 5 cc of 2% Lidocaine was then injected without complication. Flu oroscopy time was 0.8 minutes. The patient was informed of the temporary precautions to take following the procedure as well as of t he potential signs and symptoms which may indicate the need to contact physician, and expressed unde rstanding of this discussion. IMPRESSION: Successful steroid and anesthetic injection of the right and left hips.
== END 2024-10-16 17:00 | disposition home or self-care (01) ==
LOC: XYW 12:43
PROVIDERS: ATTEND Physician Assistant Medical
DX: M16.0 Bilateral primary osteoarthritis of hip (principal); J44.9 Chronic obstructive pulmonary disease, unspecified; G47.30 Sleep apnea, unspecified; Z79.4 Long term (current) use of insulin; Z79.890 Hormone replacement therapy; Z79.899 Other long term (current) drug therapy; Z87.891 Personal history of nicotine dependence
CPT/HCPCS: 20610; 77002; J1010; J2003; J3490; Q9967; 73501

== ENCOUNTER 2024-10-24 12:54 | Emergency (ER) | payer OTHER ==
[~2024-10-24] VITALS: Ht 170.2 cm; Wt 133.4 kg
[2024-10-24] MEDS ORDERED: [UNRECOGNIZED DRUG - CODE] PO (14:03)
--- NOTE | 2024-10-24 14:10 | ED.PDOC ---
Eye-HPI HPI Comments A 79 YEAR OLD FEMALE PRESENTS TO THE ED WITH COMPLAINT OF ORAL THRUSH. PATIENT STATES SHE HAS BEEN EXPERIENCING ORAL THRUSH OFF AND ON FOR THE PAST 1 YEAR. PATIENT REPORTS SHE HAS RECEIVED MULTIPLE ANTIBIOTICS AND NYSTATIN WITH NO IMPROVEMENT. PATIENT DENIES FEVER, CHILLS, SHORTNESS OF BREATH, CHEST PAIN, ABDOMINAL PAIN, NAUSEA, VOMITING, HEADACHE, OR OTHER COMPLAINTS. NO OTHER SYMPTOMS OR MODIFYING FACTORS AT THIS TIME. PATIENT IS ALERT, ORIENTED X 4, AND HAS STEADY GAIT. Chief Complaint: Thrush Time Seen by MD: 13:21 Primary Care Provider: BRITTANI Reviewed Notes: Nurses Notes, Medications, Allergies Allergies: Coded Allergies: NO KNOWN ALLERGIES (Unverified , 01/13/20) Home Meds Active Scripts Posaconazole (Posaconazole) 40 Mg/Ml Cecilia, 2 ML PO DAILY, #150 ML Prov:LISETTE MONTERROSO 10/24/24 Nystatin (Mouth-Throat) (Mycostatin (Mouth-Throat)) 500,000 Units/5 Ml Ss, 5 ML MT QID for 10 Days, #200 ML Prov:LISETTE MONTERROSO 06/27/24 Clindamycin Hcl (Clindamycin Hcl) 300 Mg Cap, 300 MG PO QID, #32 CAP Prov:LISETTE MONTERROSO 06/27/24 Reported Medications Hydrochlorothiazide (Hydrochlorothiazide) 25 Mg Tab, 25 MG PO DAILY, MG 01/13/20 Clonidine Hydrochloride (Clonidine Hcl) 0.1 Mg Tab, 0 PO BID, MG TAKE 1 TAB PO QAM & 2 TABS PO HS 01/13/20 Rabeprazole Sodium (Aciphex) 20 Mg Tab, 1 TAB PO DAILY, #90 TAB 1 Refill 01/13/20 Albuterol Sulfate (VENTOLIN MDI) 90 Mcg Ih, 2 PUFF IN QIDP, INH 01/13/20 Amlodipine Besylate (Amlodipine Besylate) 10 Mg Tab, 1 TAB PO DAILY, #30 TAB 5 Refills 01/13/20 Fluticasone-Salmeterol (Advair Diskus 250/50) 1 Puff Ih, 1 PUFF INH BID, #3 INHALER 3 Refills 01/13/20 Furosemide (Furosemide) 40 Mg Tab, 40 MG PO DAILY 01/13/20 Atorvastatin Calcium (ATORVASTATIN CALCIUM) 40 Mg Tab, 1 TAB PO HS, #30 TAB 5 Refills 01/13/20 Lisinopril (Lisinopril) 20 Mg Tab, 20 MG PO DAILY for 30 Days, MG 01/13/20 Metoprolol Tartrate (Lopressor) 25 Mg Tb, 25 MG PO BID, TAB 0 Refills 01/13/20 Diclofenac Sodium (Diclofenac Sodium Dr) 75 Mg Tab, 1 TAB PO BID, #60 TAB 1 Refill 01/13/20 Albuterol Sulfate (Albuterol Sulfate) 0.083 % Neb, 1 VIAL NEB Q4-6HPRN, #50 VIAL 01/13/20 Insulin Lispro Protamine & Lis (Humalog Mix 75/25 Kwikpen) 75 Mg/25 Kwp Inj, 20 UNITS SC BID, INJ 01/13/20 Tiotropium Henrietta Monohydrate (Spiriva Respimat) 2.5 Mcg/Act Spr, 1 PUFF IN BID, SPRAY 01/13/20 Benzonatate (Benzonatate) 100 Mg Cap, 100 MG PO TIDP, CAP 01/13/20 Acetaminophen (Acetaminophen Extra Stren) 500 Mg Tab, 500 MG PO Q6HP, TAB 01/13/20 Levothyroxine Sodium (Levothyroxine Sodium) 125 Mcg Tab, 125 MCG PO DAILY for 30 Days, MCG 01/13/20 Information Source: Patient Mode of Arrival: Ambulatory Timing: Months Duration: Since onset Prehospital treatment: None Quality: Pain Lids: Normal Conjunctiva: Normal Cornea: Normal Pupils: Normal EOM: Normal Fundus: Normal Slit lamp exam: Normal Anterior chamber: Normal Mouth Location: Tongue Mouth: Normal ENT Ear Exam: Normal, Normal, Normal Nose: Normal Sinuses: Normal Oropharynx: Normal Onset: Spontaneous Throat Exposed to: None Last Tetanus: Unknown Modifying factors: Nothing Associated signs and symptoms: Other (MOUTH THRUSH) Past Medical History PAST MEDICAL HISTORY: DM, HTN Surgical History: Denies all surgeries TIMBER ROBBER History: No Pertinent TIMBER ROBBER History Family History Family History: Reviewed,noncontributory to illness Social History Smoker: Non-Smoker Alcohol: Denies ETOH Use Drugs: Denies Drug Use Lives In: Home Constitutional: denies: chills, diaphoresis, fatigue, fever, malaise, sweats, weakness, others EENTM: reports: others (ORAL THRUSH); denies: blurred vision, double vision, ear bleeding, ear discharge, ear drainage, ear pain, ear ringing, eye pain, eye redness, hearing loss, mouth pain, mouth swelling, nasal discharge, nose bleeding, nose congestion, nose pain, photophobia, tearing, throat pain, throat swelling, voice changes Respiratory: denies: cough, hemoptysis, orthopnea, SOB at rest, shortness of breath, SOB with excertion, stridor, wheezing, others Cardiovascular: denies: chest pain, dizzy spells, diaphoresis, Dyspnea on exertion, edema, irregular heart beat, left arm pain, lightheadedness, palpitations, PND, syncope, others Gastrointestinal: denies: abdomen distended, abdominal pain, blood streaked bowels, constipated, diarrhea, dysphagia, difficulty swallowing, hematemesis, melena, nausea, poor appetite, poor fluid intake, rectal bleeding, rectal pain, vomiting, others Genitourinary: denies: abnormal vagina bleeding, burning, dyspareunia, dysuria, flank pain, frequency, hematuria, incontinence, pain, , vagina discharg e, urgency, others Neurological: denies: dizziness, fainting, headache, left sided numbness, left sided weakness, numbness, paresthesia, pre-existing deficit, right sided numbness, right sided weakness, seizure, speech problems, tingling, tremors, weakness, others Musculoskeletal: denies: back pain, gout, joint pain, joint swelling, muscle pain, muscle stiffness, neck pain, others Integumetry: denies: bruises, change in color, change in hair/nails, dryness, laceration, lesions, lumps, rash, wounds, others Allergic/Immunocompromised: denies: Difficulty Healing, Frequent Infections, Hives, Itching, others Hematologic/Lymphatic: denies: anemia, blood clots, easy bleeding, easy bruising, swollen glands, others Endocrine: denies: excessive hunger, excessive sweating, excessive thirst, excessive urination, flushing, intolerance to cold, intolerance to heat, unexplained weight gain, unexplained weight loss, others Psychiatric: denies: anxiety, bipolar disorder, depression, hopeless, panic d isorder, schizophrenia, sleepless, suicidal, others All Other Systems: Reviewed and Negative Physical Exam General Appearance: No Apparent Distress, Normal HEENT: Normal ENT Inspection, PERRL/EOMI, Pharynx Normal, TMs Normal, Other (THICKENING WHITE MOUTH THRUSH ON THE TONGUE. NO ERYTHEMA AND VESICLE THRUSH. ) Neck: Full Range of Motion, Non-Tender, Normal, Normal Inspection Respiratory: Chest Non-Tender, Lungs Clear, No Accessory Muscle Use, No Respiratory Distress, Normal Breath Sounds Cardiovascular: No Edema, No JVD, No Murmur, No Gallop, Normal Peripheral Pulses, Regular Rate/Rhythm Breast Exam: Deferred Gastrointestinal: No Organomegaly, Non Tender, No Pulsatile Mass, Normal Bowel Sounds, Soft Genitalia: Deferred Pelvic: Deferred Rectal: Deferred Extremities: No calf tenderness, Normal capillary refill, Normal inspection, Normal range of motion, Non-tender, No pedal edema Musculoskeletal : Apperance: Normal Neurologic: Alert, plastic welder II-XII nml as Tested, No Motor Deficits, Normal Affect, Normal Mood, No Sensory Deficits Cerebellar Function: Normal Reflexes: Normal Skin: Dry, Normal Color, Warm Peripheral Pulses: 2+ carotid (R), 2+ carotid (L) Lymphatic: No Adenopathy Was a procedure done? Was a procedure done?: No EENT DIFF Eye: N/A Ear: N/A Nose: N/A Mouth: Esophageal candidiasis, Herpes Simplex, Thrush Sore Throat: N/A X-Ray, Labs, Meds, VS Vital Signs Date Time Temp Pulse Resp B/P (MAP) Pulse Ox O2 Delivery O2 Flow Rate FiO2 10/24/24 14:14 82 16 97 Room Air 10/24/24 14:14 97.8 82 17 146/80 (102) 97 97.8 10/24/24 12:56 98.1 77 18 149/83 96 98.1 X-Ray, Labs, Meds, VS Comment EXTERNAL MEDICAL RECORDS REVIEWED: [NONE] INDEPENDENT HISTORIANS: [NONE] SOCIAL DETERMINANTS OF HEALTH: [NONE] LABS ORDERED: NONE REVIEWED AND INTERPRETED RESULTS: NONE IMAGING ORDERED: NONE TREATMENTS ORDERED: NONE PROCEDURES PERFORMED: NONE CRITICAL CARE TIME: NONE I HAVE DISCUSSED THE PATIENT WITH THE ATTENDING PHYSICIAN DR. BRAVO AND HE AGREES WITH THE PATIENT'S PLAN OF CARE AND DISPOSITION. BASED ON HISTORY OF PRESENT ILLNESS, AND PHYSICAL EXAM, PATIENT WILL BE DISCHARGED HOME. DISCUSSED PLAN FOR DISCHARGE HOME WITH RX [POSACONAZOLE ORAL SUSPENSION]. MEDICATION WARNINGS GIVEN. SHARED DECISION MAKING: PATIENT INSTRUCTED TO FOLLOW UP WITH PRIMARY CARE PROVIDER IN 1-2 DAYS FOR RE-EVALUATION OF SYMPTOMS. PATIENT VERBALIZES UN DERSTANDING TO RETURN TO ED FOR NEW OR WORSENING SYMPTOMS OR IF FOLLOW UP WITH PCP CANNOT BE OBTAINED. PATIENT FEELS COMFORTABLE GOING HOME AT THIS TIME. ALL QUESTIONS ADDRESSED AT TIME OF DISCHARGE. Time of 1ST Reevaluation: 14:20 Reevaluation 1ST: Improved Patient Education/Counseling: Diagnosis, Treatment, Need For Follow Up Family Education/Counseling: Diagnosis, Treatment, Need For Follow Up Medical Screening: No EMC Exist At This Time SEPSIS Sepsis Screen Date sepsis recognized/suspect: Oct 24, 2024 Time Sepsis recognized/suspect: 1259 Recent Procedure: No On Antibiotic Therapy: No Respiratory Rate >20: No Heart Rate >90: No Temp<36 C (96.8 F) or >38.3 C: No SBP <90 or MAP <65 mmHG: No New Acute Mental Status Change: No Is the patient on CPAP, BIPAP,: No Vital Signs Date Time Temp Pulse Resp B/P (MAP) Pulse Ox O2 Delivery O2 Flow Rate FiO2 10/24/24 14:14 82 16 97 Room Air 10/24/24 14:14 97.8 82 17 146/80 (102) 97 97.8 10/24/24 12:56 98.1 77 18 149/83 96 98.1 Departure 1 Departure Time of Disposition: 14:30 Impression: Primary Impression: Oral candidiasis Disposition: 01 HOME / SELF CARE / HOMELESS Condition: Stable Additional Instructions: FOLLOW-UP WITH PCP IN 1 TO 2 DAYS. TAKE MEDICATIONS PRESCRIBED. RETURN TO ED FOR ANY NEW OR WORSENING SYMPTOMS. e-Prescriptions Posaconazole (Posaconazole) 40 Mg/Ml Cecilia 2 ML PO DAILY, #150 ML Prov: LISETTE MONTERROSO 10/24/24 Discharged With: Self Critical Care Note Critical Care Time?: No Stability Stability form required: No I personally scribed for LISETTE MONTERROSO ([email or web address]) on 10/24/24 at 14:10. Electronically submitted by Levon Mckeon ([email or web address]). LISETTE MONTERROSO Oct 24, 2024 14:10
[2024-10-24 14:14] VITALS: BP 146/80; PULSE 82; RESP 16; TEMP 97.8; O2SAT 97
== END 2024-10-24 14:16 | disposition home or self-care (01) ==
LOC: ER 12:54
DX: B37.0 Candidal stomatitis (principal); I10 Essential (primary) hypertension; E11.9 Type 2 diabetes mellitus without complications; Z79.51 Long term (current) use of inhaled steroids; Z79.899 Other long term (current) drug therapy; Z79.890 Hormone replacement therapy

== ENCOUNTER → 2024-11-07 | Outpatient (CLI) | payer OTHER ==
[~2024-11-07] MED LIST changes: +[UNRECOGNIZED DRUG - CODE] PO
[2024-11-07 11:44] LABS: Urine Protein, UAD Negative (Negative)
[2024-11-07 11:45] LABS: Hemoglobin 13.7 g/dL (12.2-16.2); Nucleated Red Blood Cells % 0.0 %
[2024-11-07 11:46] LABS: Hematocrit 42.6 % (36.0-46.0); Mean Corpuscular Hemoglobin 25.5 pg (28.0-32.0); Mean Corpuscular Volume 79.1 fL (80.0-100.0)
[2024-11-07 12:04] LABS: Alanine Aminotransferase 28 U/L (7-40); Anion Gap 12 (5-15); BUN/Creatinine Ratio 21.1 (10.0-20.0); Calcium 9.4 mg/dL (8.7-10.4); Carbon Dioxide 25 mmol/L (20-31); Chloride 102 mmol/L (98-107); Sodium 139 mmol/L (136-145); Triglycerides 82 mg/dL (< 150)
[2024-11-07 12:05] LABS: Magnesium 2.0 mg/dL (1.6-2.6); Total Protein 7.9 g/dL (5.7-8.2)
[2024-11-07 12:06] LABS: Albumin 4.4 g/dL (3.2-4.8); Bilirubin, Total 0.8 mg/dL (0.2-1.0); Cholesterol 171 mg/dL (< 200); HDL Cholesterol 53 mg/dL (40-59)
[2024-11-07 12:08] LABS: Alkaline Phosphatase 157 U/L (46-116); Blood Urea Nitrogen 26 mg/dL (9-23); Glucose 128 mg/dL (74-106); Potassium 5.2 mmol/L (3.5-5.1)
[2024-11-07 12:19] LABS: Uric Acid 4.5 mg/dL (3.1-7.8)
== END | disposition home or self-care (01) ==
LOC: LAB 11:09
PROVIDERS: ATTEND Internal Medicine
DX: E11.22 Type 2 diabetes mellitus with diabetic chronic kidney disease (principal); N18.9 Chronic kidney disease, unspecified; J44.9 Chronic obstructive pulmonary disease, unspecified; K21.9 Gastro-esophageal reflux disease without esophagitis; G47.33 Obstructive sleep apnea (adult) (pediatric); Z79.899 Other long term (current) drug therapy
CPT/HCPCS: 36415; 80053; 80061; 81003; 82306; 82607; 83036; 83735; 84443; 84550; 85025; 87086